=== PATIENT | female | born 1995 | race African-American/Black ===

== ENCOUNTER 2016-11-20 15:03 | Emergency (ER) | payer OTHER ==
[2016-11-20 15:42] VITALS: RESP 18
[2016-11-20] MEDS ORDERED: SODIUM CHLORIDE 0.9% 1,000 ML IV STA ×2 (15:59)
[2016-11-20] MEDS ORDERED: METOCLOPRAMIDE 5 MG/ML 2 ML VIAL IVP STA (15:59)
--- NOTE | 2016-11-20 16:03 | ED ---
General Adult HPI - General Chief complaint: Abdominal Pain Stated complaint: Abd Pain Time Seen by Provider: 11/20/16 15:24 Source: patient, family, RN notes reviewed Mode of arrival: ambulatory Limitations: no limitations - History of Present Illness Initial comments: Chief complaint history of present illness is a 21-year-old female who does not know she is or not. Reports she's had nausea for 3 weeks vomiting for 2 weeks. She's had on-again off-again vaginal bleeding for 2 weeks. Her menstrual cycle is late but she's not sure of how late it might be. - Related Data Home Medications Medication Instructions Recorded Confirmed No Known Home Medications [No 11/20/16 11/20/16 Known Home Medications] Allergies Allergy/AdvReac Type Severity Reaction Status Date / Time No Known Allergies Allergy Verified 11/20/16 15:46 Review of Systems ROS Statement: Those systems with pertinent positive or pertinent negative responses have been documented in the HPI. Review of systems no visual acuity changes no headache no stiff neck no chest pain or shortness of breath. The patient's nausea and vomiting. No abdominal pain. She's had vaginal bleeding 2 occasions over the past 2 weeks. No lower abdominal pain or cramping. Patient does not know if she is or not but she could be potentially. Menstrual cycle has been late but she is not sure how long. No neuro deficits or complaints. All systems otherwise reviewed. Past medical problems no medical problems. Surgeries none. Family history patient denies any family history of medical problems. Patient has seasonal ALLERGIES. She does smoke marijuana. And denies alcohol use. Patient denies working in an environment that's awful to her health. No caustic materials. ROS Other: All systems not noted in ROS Statement are negative. Past Medical History Past Medical History: No Reported History History of Any Multi-Drug Resistant Organisms: None Reported Past Surgical History: No Surgical Hx Reported Past Psychological History: No Psychological Hx Reported Smoking Status: Current every day smoker Past Alcohol Use History: Occasional Past Drug Use History: None Reported General Exam - General Exam Comments Initial Comments: General: The patient is awake and alert, planes of nausea vomiting for the past week and nausea for 2 weeks prior to that. Some vaginal bleeding. No abdominal pain. Vital signs shows temperature 98.0 pulse 74 respiratory rate 20 pulse ox 99% room air blood pressure 105/68. Eye: Pupils are equal, round and reactive to light, extra-ocular movements are intact ; there is normal conjunctiva bilaterally. No signs of icterus. Healed scar left forehead. Ears, nose, mouth and throat: There are moist mucous membranes and no oral lesions. Neck: The neck is supple, there is no tenderness or JVD. Cardiovascular: There is a regular rate and rhythm. No murmur, rub or gallop is appreciated. Respiratory: Lungs are clear to auscultation, respirations are non-labored, breath sounds are equal. No wheezes, stridor, rales, or rhonchi. Gastrointestinal: Soft, non-distended, non-tender abdomen without masses or organomegaly noted. There is no rebound or guarding present. No CVA tenderness. Bowel sounds are unremarkable. Back: There is no tenderness to palpation in the midline. There is no obvious deformity. No rashes noted. Musculoskeletal: Normal ROM, no tenderness, There is no pedal edema. There is no calf tenderness or swelling. Sensation intact. Pulses equal bilaterally 2+. Neurological: No complaint of any neuro deficits. None noted on exam. Skin is warm and dry and no rashes or lesions are noted. Limitations: no limitations Course Vital Signs 11/20/16 11/20/16 11/20/16 15:10 15:40 18:17 Temperature 98.0 F 98.5 F 98.7 F Pulse Rate 74 66 65 Respiratory 20 18 18 Rate Blood Pressure 105/68 102/86 101/58 O2 Sat by Pulse 99 100 100 Oximetry 11/20/16 19:24 Temperature 98.0 F Pulse Rate 70 Respiratory 18 Rate Blood Pressure 102/56 O2 Sat by Pulse 96 Oximetry Medical Decision Making - Medical Decision Making Medical decision making; the patient's beta is positive at 56,377. The patient' s white count is 4.2 hemoglobin 12 medical 38. Amylase lipase normal limits. Potassium 3.6. BUN 11 creatinine 0.75 and GFR greater than 60. Glucose 91. ABO Rh lab reports ; A positive Ultrasound was done after was found the patient is . Radiologist's final impression is; single live intrauterine gestation is confirmed. Mean crown rump length is 0.5 cm corresponding a 6 week 2 day old fetus. As read by Dr. morrow Vaginal examination was done with the help of nurse Maylin. No evidence of any bleeding. Cervix was closed. No discharge. No complaint of pain with examination. Dr. Mahajan Case discussed with on-call CHEMICAL PROCESSOR Dr. Lerma. At this juncture the patient stable she will call the office tomorrow for follow-up appointment. Advised no sex for one week. We did discuss threatened miscarriage. Patient's to call for appointment. - Lab Data Result diagrams: 11/20/16 15:30 11/20/16 15:30 Lab Results 11/20/16 11/20/16 11/20/16 Range/Units 15:30 15:30 15:30 WBC 4.2 (3.8-10.6) k/uL RBC 5.01 (3.80-5.40) m/uL Hgb 12.0 (11.4-16.0) gm/dL Hct 38.2 (34.0-46.0) % MCV 76.2 L (80.0-100.0) fL MCH 24.0 L (25.0-35.0) pg MCHC 31.5 (31.0-37.0) g/dL RDW 14.4 (11.5-15.5) % Plt Count 186 (150-450) k/uL Neutrophils % 51 % Lymphocytes % 34 % Monocytes % 6 % Eosinophils % 4 % Basophils % 1 % Neutrophils # 2.1 (1.3-7.7) k/uL Lymphocytes # 1.4 (1.0-4.8) k/uL Monocytes # 0.2 (0-1.0) k/uL Eosinophils # 0.2 (0-0.7) k/uL Basophils # 0.0 (0-0.2) k/uL Hypochromasia Slight Sodium 138 (137-145) mmol/L Potassium 3.6 (3.5-5.1) mmol/L Chloride 101 (98-107) mmol/L Carbon Dioxide 24 (22-30) mmol/L Anion Gap 13 mmol/L BUN 11 (7-17) mg/dL Creatinine 0.75 (0.52-1.04) mg/dL Est GFR (MDRD) Af Amer >60 (>60 ml/min/1.73 sqM) Est GFR (MDRD) Non-Af >60 (>60 ml/min/1.73 sqM) Glucose 91 (74-99) mg/dL Calcium 9.8 (8.4-10.2) mg/dL Total Bilirubin 0.7 (0.2-1.3) mg/dL AST 20 (14-36) U/L ALT 20 (9-52) U/L Alkaline Phosphatase 40 (38-126) U/L Total Protein 7.9 (6.3-8.2) g/dL Albumin 4.6 (3.5-5.0) g/dL Amylase 87 (30-110) U/L Lipase 60 (23-300) U/L HCG, Quant 01069.1 mIU/mL Urine Color Dark Brown Urine Appearance Cloudy H (Clear) Urine pH 6.0 (5.0-8.0) Ur Specific [place] 1.050 H (1.001-1.035) Urine Protein 2+ H (Negative) Urine Glucose (UA) Trace H (Negative) Urine Ketones Trace H (Negative) Urine Blood Negative (Negative) Urine Nitrite Negative (Negative) Urine Bilirubin 1+ H (Negative) Urine Urobilinogen 12.0 (<2.0) mg/dL Ur Leukocyte Esterase Negative (Negative) Urine RBC 2 (0-5) /hpf Urine WBC 8 H (0-5) /hpf Urine WBC Clumps Few H (None) /hpf Ur Squamous Epith Cells 28 H (0-4) /hpf Amorphous Sediment Rare H (None) /hpf Urine Mucus Many H (None) /hpf Blood Type Blood Type Recheck 11/20/16 Range/Units 15:30 WBC (3.8-10.6) k/uL RBC (3.80-5.40) m/uL Hgb (11.4-16.0) gm/dL Hct (34.0-46.0) % MCV (80.0-100.0) fL MCH (25.0-35.0) pg MCHC (31.0-37.0) g/dL RDW (11.5-15.5) % Plt Count (150-450) k/uL Neutrophils % % Lymphocytes % % Monocytes % % Eosinophils % % Basophils % % Neutrophils # (1.3-7.7) k/uL Lymphocytes # (1.0-4.8) k/uL Monocytes # (0-1.0) k/uL Eosinophils # (0-0.7) k/uL Basophils # (0-0.2) k/uL Hypochromasia Sodium (137-145) mmol/L Potassium (3.5-5.1) mmol/L Chloride (98-107) mmol/L Carbon Dioxide (22-30) mmol/L Anion Gap mmol/L BUN (7-17) mg/dL Creatinine (0.52-1.04) mg/dL Est GFR (MDRD) Af Amer (>60 ml/min/1.73 sqM) Est GFR (MDRD) Non-Af (>60 ml/min/1.73 sqM) Glucose (74-99) mg/dL Calcium (8.4-10.2) mg/dL Total Bilirubin (0.2-1.3) mg/dL AST (14-36) U/L ALT (9-52) U/L Alkaline Phosphatase (38-126) U/L Total Protein (6.3-8.2) g/dL Albumin (3.5-5.0) g/dL Amylase (30-110) U/L Lipase (23-300) U/L HCG, Quant mIU/mL Urine Color Urine Appearance (Clear) Urine pH (5.0-8.0) Ur Specific [place] (1.001-1.035) Urine Protein (Negative) Urine Glucose (UA) (Negative) Urine Ketones (Negative) Urine Blood (Negative) Urine Nitrite (Negative) Urine Bilirubin (Negative) Urine Urobilinogen (<2.0) mg/dL Ur Leukocyte Esterase (Negative) Urine RBC (0-5) /hpf Urine WBC (0-5) /hpf Urine WBC Clumps (None) /hpf Ur Squamous Epith Cells (0-4) /hpf Amorphous Sediment (None) /hpf Urine Mucus (None) /hpf Blood Type A Positive Blood Type Recheck No Disposition Clinical Impression: Threatened Disposition: HOME SELF-CARE Condition: Fair Instructions: Threatened Miscarriage (ED) Additional Instructions: Call follow-up with CHEMICAL PROCESSOR as directed. No heavy lifting. No sex for one week until cleared by CHEMICAL PROCESSOR. Referrals: None,Stated [Primary Care Provider] - 1-2 days Lore Lerma MD [STAFF PHYSICIAN] - 1-2 days Time of Disposition: 19:38
[2016-11-20 16:18] LABS: Basophils % (A) 1 %; CH 23.9; CHCM 31.5; Eosinophils # (A) 0.2 k/uL (0-0.7); Eosinophils % (A) 4 %; HCT 38.2 % (34.0-46.0); HDW 2.63; Hypochromasia Slight; Luc # (Auto) 0.15; Luc % (Auto) 4; Lymphocytes # (A) 1.4 k/uL (1.0-4.8); Lymphocytes % (A) 34 %; MCHC 31.5 g/dL (31.0-37.0); MCV 76.2 fL (80.0-100.0); Mean Platelet Volume 6.6; Monocytes # (A) 0.2 k/uL (0-1.0); Monocytes % (A) 6 %; Neutrophils # (A) 2.1 k/uL (1.3-7.7); Neutrophils % (A) 51 %; RBC 5.01 m/uL (3.80-5.40); RDW 14.4 % (11.5-15.5); WBC 4.2 k/uL (3.8-10.6); WBC (Perox) 4.18
[2016-11-20 16:28] LABS: ALT 20 U/L (9-52); AST 20 U/L (14-36); Alkaline Phosphatase 40 U/L (38-126); Amylase 87 U/L (30-110); Anion Gap 13 mmol/L; Blood Urea Nitrogen 11 mg/dL (7-17); Calcium 9.8 mg/dL (8.4-10.2); Carbon Dioxide 24 mmol/L (22-30); Chloride 101 mmol/L (98-107); Glucose 91 mg/dL (74-99); Non-African American GFR(MDRD) >60 (>60 ml/min/1.73 sqM); Potassium 3.6 mmol/L (3.5-5.1); Sodium 138 mmol/L (137-145); Total Bilirubin 0.7 mg/dL (0.2-1.3); Total Protein 7.9 g/dL (6.3-8.2)
[2016-11-20 16:33] LABS: Amorphous Sediment,Urine Rare /hpf; Appearance,Urine Cloudy (Clear); Bilirubin,Urine 1+ (Negative); Glucose,Urine (UA) Trace (Negative); Ketones,Urine Trace (Negative); Leukocyte Esterase,Urine Negative (Negative); Mucus,Urine Many /hpf; Nitrite,Urine Negative (Negative); Particle Count 37489; Protein,Urine 2+ (Negative); RBC,Urine 2 /hpf (0-5); Squamous Epithelial Cell,Urine 28 /hpf (0-4); UA Billing (MACRO vs. MICRO) MICRO; WBC,Urine 8 /hpf (0-5)
[2016-11-20 17:16] LABS: HCG,Quantitative Serum 56377.1 mIU/mL
--- NOTE | 2016-11-20 18:08 | US ---
EXAMINATION TYPE: US OB <=14 wks transvag DATE OF EXAM: 11/20/2016 5:19 PM COMPARISON: NONE CLINICAL HISTORY: Bleeding, . Positive beta-hCG test EXAM PERFORMED: Transvaginal (TV) and Transabdominal (TA) pelvic ultrasound. EXAM MEASUREMENTS: GESTATIONAL AGE / DATING Physician Established: Not established Dates by LMP: (6 weeks/1 days) EDC: 07/15/2017 Dates by First Scan: No previous Dates by Current Scan for: (6 weeks/2 days) EDC: 07/14/2017 MATERNAL ANATOMY Uterus: 7.2 x 4.7 x 7.0 cm Right Ovary: 3.4 x 2.3 x 2.9 cm Left Ovary: 2.6 x 1.1 x 2.0 cm Post CDS / Adnexa: Small amount of free fluid visualized in the cul de sac Presence of free fluid: Yes Presence of corpus luteal cyst: Yes, right ovary measuring 2.1 x 2.0 x 1.9 cm Presence of subchorionic bleed: No GESTATION / SURVEY CRL: 0.51 cm (6 weeks/2 days) Yolk Sac (normal less than 6mm): 3 mm Heart Rate: 127 bpm Rhythm: Normal IUP: Viable IUP Date of LMP: 10/08/2016 Beta HcG (if available): 56,377 Viable IUP, measurements congruent with dates. Single live intrauterine gestation is seen as gestational sac, yolk sac, and pole are identifie d. Small amount of free fluid is seen in pelvic cul-de-sac on last images saved. Both ovaries are identified. Within right ovary there is peripheral hypervascular 2.1 cm solid and cy stic lesion felt to reflect corpus luteal cyst. IMPRESSION: Single live intrauterine gestation is confirmed. Mean crown-rump length is 0.5 cm corresponding to 6 week 2 day old fetus.
[2016-11-20 19:25] VITALS: BP 102/56; PULSE 70; TEMP 98
== END 2016-11-20 19:45 | disposition home or self-care (01) ==
LOC: EC 15:03
DX: O20.0 Threatened abortion (principal); O99.331 Smoking (tobacco) complicating pregnancy, first trimester; Z3A.01 Less than 8 weeks gestation of pregnancy; F17.200 Nicotine dependence, unspecified, uncomplicated; F12.90 Cannabis use, unspecified, uncomplicated
CPT/HCPCS: 99284; 96374; 96361 ×3; 36415; 86900; 86901; 80053; 82150; 83690; 85025; 81001; 84702; 76801; 76817; J2765

== ENCOUNTER 2017-04-02 18:21 | Outpatient (CLI) | payer OTHER ==
[2017-04-02 18:59] VITALS: BP 97/54; PULSE 71; RESP 16; TEMP 98.4
--- NOTE | 2017-04-21 12:25 | P.MSEPDOC ---
Presenting Problems - Arrival Data Date of Arrival on Unit: 04/02/17 Time of Arrival on Unit: 18:30 Mode of Transport: Ambulatory - Complaint OB-Reason for Admission/Chief Complaint: Other Comment: EXPOSED TO STD ONE WEEK AGO Medical History - Information : 1 Para: 0 Term: 0 : 0 Abortions: Spontaneous or Elective: 0 Number of Living Children: 0 - Gestational Age Expected Date of Delivery: 07/13/17 Gestational Age by LIUDMILA (wks/days): 28 Weeks and 1 Days - History Comment: STD UNKNOWN RECENT EXPOSURE Review of Systems - Review of Systems Constitutional: No problems Breast: No problems ENT: No problems Cardiovascular: No problems Respiratory: No problems Gastrointestinal: No problems Genitourinary: No problems Musculoskeletal: No problems Neurological: No problems Skin: No problems Vital Signs - Temperature Temperature: 98.4 F Temperature Source: Oral - Pulse Supine Pulse Rate: 71 Pulse Assessment Method: Automatic Cuff - Respirations Respiratory Rate: 16 Oxygen Delivery Method: Room Air - Blood Pressure Sitting Blood Pressure: 97/54 Blood Pressure Mean: 68 Blood Pressure Source: Automatic Cuff Medical Screen Scoring (Pre) - Cervical Exam Dilation: Exam Deferred Effacement: Exam Deferred - Uterine Contractions Frequency: N/A Duration: N/A Intensity: N/A - Maternal Vital Signs Maternal Temperature: N/A Signs of Preeclampsia: N/A Maternal Respirations: N/A - Maternal Trauma Maternal Trauma: N/A - Assessment Heart Rate - NICHD Category: Category I (Normal) = 0 Position: N/A - Total Score Total Score (Pre): 0 Physician Notification (Pre) - Physician Notified Physician Notified Date: 04/02/17 Physician Notified Time: 18:58 Physician/Practitioner Notifed:: DR GRAVES New Order Received: Yes - Notification Comment Comment: DISCHARGE HOME Disposition - Disposition OB Disposition: Discharge to home Discharge Date: 04/02/17 Discharge Time: 18:59 I agree with the RN Medical Screening Exam: No Physician's MSE Comment: incomplete documentation Risk & Benefit of care provided described in d/c instruction: No Diagnosis: 28 WEEKS GESTATION OF
== END 2017-04-02 19:03 | disposition home or self-care (01) ==
LOC: FBPOP 18:21
PROVIDERS: ATTEND Obstetrics & Gynecology
DX: O99.89 Other specified diseases and conditions complicating pregnancy, childbirth and the puerperium (principal); Z3A.28 28 weeks gestation of pregnancy
CPT/HCPCS: 99213

== ENCOUNTER 2017-05-14 21:20 | Outpatient (CLI) | payer OTHER ==
--- NOTE | 2017-06-02 08:55 | P.MSEPDOC ---
Presenting Problems - Arrival Data Date of Arrival on Unit: 05/14/17 Time of Arrival on Unit: 21:20 Mode of Transport: Wheelchair - Complaint OB-Reason for Admission/Chief Complaint: Possible Onset of Labor Medical History - Information : 1 Para: 0 Term: 0 : 0 Abortions: Spontaneous or Elective: 0 Number of Living Children: 0 - Gestational Age Gestational Age by LIUDMILA (wks/days): 31 Weeks and 3 Days Medical Screen Scoring (Pre) - Cervical Exam Dilation: 0 cm = 0 Membranes: Intact - Uterine Contractions Frequency: N/A - Maternal Vital Signs Signs of Preeclampsia: N/A - Total Score Total Score (Pre): 0 Physician Notification (Pre) - Physician Notified Physician Notified Date: 05/14/17 Physician Notified Time: 22:10 Physician/Practitioner Notifed:: stephanie Spoke With: stephanie New Order Received: Yes - Notification Comment Comment: discharge home. Medical Screen Scoring (Post) - Cervical Exam Dilation: 0 cm = 0 - Assessment NST: Reactive - Total Score Total Score (Post): 0 Disposition - Disposition OB Disposition: Discharge to home Discharge Date: 05/14/17 Discharge Time: 22:15 I agree with the RN Medical Screening Exam: Yes Risk & Benefit of care provided described in d/c instruction: Yes Diagnosis: FALSE LABOR BEFORE 37 COMPLETED WEEKS OF GEST, SECOND TRI
== END 2017-05-14 22:15 | disposition home or self-care (01) ==
LOC: FBPOP 21:20
PROVIDERS: ATTEND Obstetrics & Gynecology
DX: O47.02 False labor before 37 completed weeks of gestation, second trimester (principal); Z3A.31 31 weeks gestation of pregnancy
CPT/HCPCS: 59025; G0463; 99213

== ENCOUNTER 2017-07-10 06:15 | Inpatient (IN) | payer OTHER ==
[2017-07-10 06:39] VITALS: BMI 24.0
[2017-07-10] MEDS ORDERED: METHYLERGONOVINE 0.2 MG/ML 1 ML AMP IM PRN (06:47)
[2017-07-10] MEDS ORDERED: OXYTOCIN 10 UNIT/ML 1 ML VIAL IM PRN (06:47)
[2017-07-10] MEDS ORDERED: CARBOPROST TROMETHAMINE 250 MCG/ML 1 ML AMP IM PRN (06:47)
[2017-07-10] MEDS ORDERED: TERBUTALINE 1 MG/ML VIAL SQ PRN (06:47)
[2017-07-10] MEDS ORDERED: LIDOCAINE 1% (PF) 10 MG/ML (30 ML SDV) SQ PRN (06:47)
[2017-07-10] MEDS ORDERED: OXYTOCIN 20 UNITS/1000 ML NS 1,000 ML IV SCH ×2 (07:00→19:00)
[2017-07-10] MEDS ORDERED: BUTORPHANOL 1 MG/ML 1 ML VIAL IV PRN (08:29)
[2017-07-10 08:39] LABS: Basophils % (A) 0 %; CH 24.6; CHCM 30.7; Eosinophils # (A) 0.1 k/uL (0-0.7); Eosinophils % (A) 2 %; HCT 31.6 % (34.0-46.0); HDW 3.09; HGB 9.4 gm/dL (11.4-16.0); Hypochromasia Moderate; Luc # (Auto) 0.15; Luc % (Auto) 2; Lymphocytes # (A) 1.4 k/uL (1.0-4.8); Lymphocytes % (A) 21 %; MCHC 29.8 g/dL (31.0-37.0); MCV 80.7 fL (80.0-100.0); Mean Platelet Volume 8.4; Monocytes # (A) 0.4 k/uL (0-1.0); Monocytes % (A) 6 %; Neutrophils # (A) 4.7 k/uL (1.3-7.7); Neutrophils % (A) 69 %; RBC 3.92 m/uL (3.80-5.40); RDW 15.6 % (11.5-15.5); WBC 6.8 k/uL (3.8-10.6); WBC (Perox) 6.66
[2017-07-10] MEDS: LACTATED RINGERS 1,000 ML IV SCH ×2 (08:40→14:23)
--- NOTE | 2017-07-10 08:41 | P.HPOB ---
History of Present Illness H&P Date: 07/10/17 Chief Complaint: IUP at 40-2/7 weeks, EDC of 07/08. This is a very pleasant 22-year-old 1 para 0 at 40-2/7 weeks. She is here for elective induction of labor. She notes good movement, occasional contractions and is feeling a significant amount of pressure. She denies any loss of fluid or vaginal bleeding. Next On blood work a blood type of A+ was noted, rubella immune, RPR nonreactive, hepatitis B surface antigen negative, HIV negative, group beta strep negative in addition STD testing was negative in March. Review of Systems Constitutional: Denies fatigue, Denies fever Respiratory: Denies cough, Denies dyspnea Gastrointestinal: Denies constipation, Denies diarrhea Genitourinary: Reports Past Medical History Past Medical History: No Reported History History of Any Multi-Drug Resistant Organisms: None Reported Past Surgical History: No Surgical Hx Reported Past Anesthesia/Blood Transfusion Reactions: No Reported Reaction Past Psychological History: No Psychological Hx Reported Smoking Status: Former smoker Past Alcohol Use History: Occasional Past Drug Use History: None Reported - Past Family History Mother Family Medical History: No Reported History Medications and Allergies Home Medications Medication Instructions Recorded Confirmed Type No Known Home Medications [No 11/20/16 07/10/17 History Known Home Medications] Allergies Allergy/AdvReac Type Severity Reaction Status Date / Time No Known Allergies Allergy Verified 07/10/17 06:29 Exam Osteopathic Statement: *. No significant issues noted on an osteopathic structural exam other than those noted in the History and Physical/Consult. - Vital Signs Vital signs: Vital Signs Temp Pulse Resp BP Pulse Ox 07/10/17 06:28 97.0 F L 88 16 113/73 98 Intake and Output 07/09/17 07/10/17 07/10/17 22:59 06:59 14:59 Other: Weight 73.936 kg Assessment and Plan (1) Term Narrative/Plan: Plan to admit to labor and delivery with Pitocin augmentation of labor. Pitocin protocol will be followed. Amniotomy when appropriate. She does request Stadol for pain management. In addition epidural is discussed. Current Visit: Yes Status: Acute Code(s): Z34.80 - ENCOUNTER FOR SUPRVSN OF NORMAL , UNSP TRIMESTER SNOMED Code(s): 64619927 Time with Patient: Less than 30
[2017-07-10] MEDS ORDERED: fentaNYL (PF) 50 MCG/ML 5 ML AMP ONE (14:54)
[2017-07-10] MEDS ORDERED: BUPIVACAINE (PF) 0.25% 30 ML VIAL ONE (14:54)
[2017-07-10] MEDS ORDERED: SODIUM CHLORIDE 0.9% 100 ML BAG ONE (14:54)
[2017-07-10] MEDS ORDERED: diphenhydrAMINE 50 MG/ML 1 ML VIAL IVP PRN ×2 (18:57)
[2017-07-10] MEDS ORDERED: HYDROCORTISONE 2.5% RECTAL CREAM 30 GM TUBE RECTAL PRN (18:57)
[2017-07-10] MEDS ORDERED: LANOLIN CREAM 5 GM TUBE TOPICAL PRN (18:57)
[2017-07-10] MEDS ORDERED: ACETAMINOPHEN TAB 325 MG TAB PO PRN (18:57)
[2017-07-10] MEDS ORDERED: diphenhydrAMINE 25 MG CAP PO PRN (18:57)
[2017-07-10] MEDS ORDERED: BENZOCAINE/MENTHOL SPRAY 1 GM/SPRAY AEROSOL TOPICAL PRN (18:57)
[2017-07-10] MEDS ORDERED: Acetaminophen-Codeine 300-30mg TAB PO PRN ×2 (18:57)
[2017-07-10] MEDS ORDERED: SIMETHICONE 80 MG CHEWABLE PO PRN (18:57)
[2017-07-10] MEDS ORDERED: WITCH HAZEL 1 EACH MED..PAD TOPICAL PRN (18:57)
[2017-07-10] MEDS ORDERED: ZOLPIDEM 5 MG TAB PO PRN (18:57)
[2017-07-10] MEDS ORDERED: diphenhydrAMINE 50 MG CAP PO PRN (18:57)
--- NOTE | 2017-07-10 18:57 | P.PROBDLV ---
Vaginal Delivery Note - . Vaginal Delivery Note: pt progressed to complete and began pushing over an intact perineum Preoperative diagnosis intrauterine at 40-2/7 weeks, IUGR Postoperative diagnosis same Procedure normal spontaneous vaginal delivery, Pitocin induction of labor, amniotomy, repair of right labial laceration in the usual fashion Surgeon S Tremp DO Anesthesia epidural, local with repair Estimated blood loss 200 mL Findings male in occiput anterior presentation, nuchal cord 1 delivered through. Weight of 6 lbs. 5 oz. at 1838, Apgars of 9 and 9 at one and 5 minutes respectively. Placenta delivered spontaneously without difficulty, three-vessel cord is noted. Specimen placenta Complications none
[2017-07-10] MEDS: IBUPROFEN 600 MG TAB PO PRN (19:21)
[2017-07-10] MEDS: SENNOSIDES-DOCUSATE SODIUM 1 EACH TAB PO SCH (21:06)
[2017-07-11] MEDS: IBUPROFEN 600 MG TAB PO PRN ×2 (05:02→11:33)
[2017-07-11 05:44] LABS: Anisocytosis Slight; Basophils % (A) 0 %; CH 24.3; CHCM 31.1; Eosinophils # (A) 0.1 k/uL (0-0.7); Eosinophils % (A) 2 %; HCT 26.7 % (34.0-46.0); HDW 3.02; HGB 8.3 gm/dL (11.4-16.0); Hypochromasia Moderate; Luc # (Auto) 0.08; Luc % (Auto) 1; Lymphocytes # (A) 0.8 k/uL (1.0-4.8); Lymphocytes % (A) 9 %; MCH 24.5 pg (25.0-35.0); MCHC 31.1 g/dL (31.0-37.0); MCV 78.6 fL (80.0-100.0); Mean Platelet Volume 8.1; Monocytes # (A) 0.4 k/uL (0-1.0); Monocytes % (A) 5 %; Neutrophils # (A) 7.8 k/uL (1.3-7.7); Neutrophils % (A) 84 %; RDW 16.2 % (11.5-15.5); WBC 9.3 k/uL (3.8-10.6)
[2017-07-11] MEDS ORDERED: IRON AG/C/B12/CA/SUC.ACID/STOM 1 EACH TAB PO SCH (09:00)
[2017-07-11] MEDS ORDERED: INFLUENZA VACCINE (6 MOS+) 60 MCG/0.5 ML SYRINGE IM ONE (09:28)
--- NOTE | 2017-07-11 10:20 | P.PNOBGVD ---
Subjective - Subjective Principal diagnosis: PPD #1 Interval history: she is doing well, no concerns this am. she is ambulating and voiding without difficulty. no n/v and is tolerating a regular diet. lochia is minimal. she does desire d/c at 24 hours. Patient reports: Reports appetite normal, Reports voiding normally, Reports pain well controlled, Reports ambulating normally [place]: doing well Objective - Latest Vital Signs Latest vital signs: Vital Signs Temp Pulse Resp BP Pulse Ox 07/11/17 07:45 98 F 76 18 109/69 99 07/11/17 04:00 99 F 89 14 111/64 07/11/17 00:00 98.9 F 86 14 101/73 07/10/17 20:51 77 16 125/78 07/10/17 20:21 71 16 110/63 07/10/17 19:51 73 16 109/71 07/10/17 19:36 70 16 120/75 07/10/17 19:21 74 16 108/72 07/10/17 19:06 88 19 113/71 07/10/17 18:51 96.8 F L 89 18 118/62 100 Intake and Output 07/10/17 07/11/17 07/11/17 22:59 06:59 14:59 Other: # Voids 1 1 - Exam Lungs: bilateral: normal Extremities: Present: normal Abdomen: Present: normal appearance Uterus: Present: firm - Labs Labs: Abnormal Lab Results - Last 24 Hours (Table) 07/11/17 Range/Units 05:29 RBC 3.40 L (3.80-5.40) m/uL Hgb 8.3 L (11.4-16.0) gm/dL Hct 26.7 L (34.0-46.0) % MCV 78.6 L (80.0-100.0) fL MCH 24.5 L (25.0-35.0) pg RDW 16.2 H (11.5-15.5) % Plt Count 110 L (150-450) k/uL Neutrophils # 7.8 H (1.3-7.7) k/uL Lymphocytes # 0.8 L (1.0-4.8) k/uL Assessment and Plan (1) Term Narrative/Plan: will plan d/c later tonight. discharge instructions reviewed with pt, motrin for pain if needed on d/c. Current Visit: Yes Status: Acute Code(s): Z34.80 - ENCOUNTER FOR SUPRVSN OF NORMAL , UNSP TRIMESTER SNOMED Code(s): 16933615
--- NOTE | 2017-07-11 13:28 | P.DS ---
Providers Date of admission: 07/10/17 06:16 Expected date of discharge: 07/11/17 Attending physician: Bronwyn Mckeon Primary care physician: Stated None - Discharge Diagnosis(es) (1) Term This 22-year-old at 40-2/7 weeks was admitted to labor and delivery for elective induction of labor 07/10/2017. She was augmented with Pitocin per protocol and progressed through labor eventually getting an epidural. She began pushing and had spontaneous vaginal delivery of a viable male . Her course has been uneventful and on this day #1 she wishes discharge home. Discharge instructions are discussed with the patient in detail and she will follow-up in the office in 4-6 weeks. Prescription for Motrin for discomfort is given to the patient. She will call the office with any further questions or concerns prior to this appointment Current Visit: Yes Status: Acute Plan - Discharge Summary New Discharge Prescriptions: No Action No Known Home Medications [No Known Home Medications] Discharge Medication List No Known Home Medications [No Known Home Medications] 11/20/16 [History] Follow up Appointment(s)/Referral(s): Bronwyn Mckeon DO [Doctor of Osteopathic Medicine] - 4 Weeks Patient Instructions/Handouts: Vaginal Delivery (DC) Discharge Disposition: HOME SELF-CARE
[2017-07-11] MEDS: SENNOSIDES-DOCUSATE SODIUM 1 EACH TAB PO SCH ×2 (15:31→20:40)
[2017-07-11 16:38] VITALS: BP 117/63; PULSE 82; RESP 17; TEMP 98.1
== END 2017-07-11 21:15 | disposition home or self-care (01) | DRG 560 ==
LOC: 4FBP 06:16
PROVIDERS: ADMIT Obstetrics & Gynecology Obstetrics; ATTEND Obstetrics & Gynecology Obstetrics
PROC: 10E0XZZ Delivery of Products of Conception, External Approach (ICD-10-PCS; principal; 2017-07-10)
PROC: 0HQ9XZZ Repair Perineum Skin, External Approach (ICD-10-PCS; 2017-07-10)
PROC: 00HU33Z Insertion of Infusion Device into Spinal Canal, Percutaneous Approach (ICD-10-PCS; 2017-07-10)
PROC: 3E0R3BZ Introduction of Anesthetic Agent into Spinal Canal, Percutaneous Approach (ICD-10-PCS; 2017-07-10)
PROC: 3E033VJ Introduction of Other Hormone into Peripheral Vein, Percutaneous Approach (ICD-10-PCS; 2017-07-10)
PROC: 10907ZC Drainage of Amniotic Fluid, Therapeutic from Products of Conception, Via Natural or Artificial Opening (ICD-10-PCS; 2017-07-10)
PROC: 3E0234Z Introduction of Serum, Toxoid and Vaccine into Muscle, Percutaneous Approach (ICD-10-PCS; 2017-07-11)
DX: O36.5930 Maternal care for other known or suspected poor fetal growth, third trimester, not applicable or unspecified (principal); O69.81X0 Labor and delivery complicated by cord around neck, without compression, not applicable or unspecified; O70.0 First degree perineal laceration during delivery; Z37.0 Single live birth; Z3A.40 40 weeks gestation of pregnancy; Z87.891 Personal history of nicotine dependence; Z23 Encounter for immunization
CPT/HCPCS: 85025; 88307; 90686

== ENCOUNTER 2019-03-07 00:52 | Emergency (ER) | payer OTHER ==
[2019-03-07 01:10] VITALS: RESP 18; TEMP 97.3
[2019-03-07] MEDS ORDERED: KETOROLAC 60 MG/2 ML VIAL IM STA (01:45)
[2019-03-07] MEDS ORDERED: ORPHENADRINE 30 MG/ML 2 ML VIAL IM STA (01:45)
--- NOTE | 2019-03-07 02:47 | US ---
EXAM: US Duplex Right Lower Extremity Veins CLINICAL HISTORY: ITS.REASON US Reason: Pain TECHNIQUE: Real-time duplex ultrasound scan of the right lower extremity veins integrating B-mode two-dimensional vascular structure, Doppler spectral analysis, color flow Doppler imaging and compression. COMPARISON: No relevant prior studies available. FINDINGS: Deep veins: No DVT in the visualized common femoral, femoral, proximal deep femoral or popliteal veins. The veins demonstrate normal color flow, are normally compressible, with normal phasic flow and/or augmentation response. Superficial veins: No thrombus in the visualized great saphenous vein. Soft tissues: No popliteal cyst. IMPRESSION: No DVT.
--- NOTE | 2019-03-07 02:59 | ED ---
Extremity Problem HPI - General Source: patient, RN notes reviewed, old records reviewed Mode of arrival: ambulatory Limitations: no limitations <Lianne Toure - Last Filed: 03/07/19 03:32> <Carina Pablo - Last Filed: 03/07/19 05:27> - General Chief complaint: Extremity Problem,Nontraumatic Stated complaint: Leg Pain Time Seen by Provider: 03/07/19 01:14 - History of Present Illness Initial comments: Patient is a 23-year-old female presents emergency with right calf pain. Patient reports symptoms started while walking to work. Patient states that she has tingling feeling down her calf and leg. Patient reports no history of blood clots, denies fevers, chills, and other symptoms. (Lianne Toure) - Related Data Home Medications Medication Instructions Recorded Confirmed No Known Home Medications 11/20/16 07/10/17 Allergies Allergy/AdvReac Type Severity Reaction Status Date / Time No Known Allergies Allergy Verified 07/10/17 06:29 Review of Systems ROS Other: All systems not noted in ROS Statement are negative. <Lianne Toure - Last Filed: 03/07/19 03:32> ROS Other: All systems not noted in ROS Statement are negative. <Carina Pablo P - Last Filed: 03/07/19 05:27> ROS Statement: Those systems with pertinent positive or pertinent negative responses have been documented in the HPI. Past Medical History Past Medical History: No Reported History History of Any Multi-Drug Resistant Organisms: None Reported Past Surgical History: No Surgical Hx Reported Past Anesthesia/Blood Transfusion Reactions: No Reported Reaction Past Psychological History: No Psychological Hx Reported Smoking Status: Former smoker Past Alcohol Use History: Occasional Past Drug Use History: None Reported - Past Family History Mother Family Medical History: No Reported History <Lianne Toure - Last Filed: 03/07/19 03:32> General Exam Limitations: no limitations General appearance: alert, in no apparent distress Head exam: Present: atraumatic, normocephalic, normal inspection Eye exam: Present: normal appearance, PERRL, EOMI. Absent: scleral icterus, conjunctival injection, periorbital swelling ENT exam: Present: normal exam, mucous membranes moist Neck exam: Present: normal inspection. Absent: tenderness, meningismus, lymp hadenopathy Respiratory exam: Present: normal lung sounds bilaterally. Absent: respiratory distress, wheezes, rales, rhonchi, stridor Cardiovascular Exam: Present: regular rate, normal rhythm, normal heart sounds. Absent: systolic murmur, diastolic murmur, rubs, gallop, clicks GI/Abdominal exam: Present: soft, normal bowel sounds. Absent: distended, tenderness, guarding, rebound, rigid Extremities exam: Present: normal inspection, full ROM, normal capillary refill. Absent: tenderness, pedal edema, joint swelling, calf tenderness Right Knee exam: Present: normal inspection, full ROM Lower Leg exam: Present: tenderness, swelling. Absent: normal inspection Ankle exam: Present: normal inspection, full ROM Foot/Toe exam: Present: normal inspection Neurovascular tendon exam: Present: no vascular compromise Back exam: Present: normal inspection Neurological exam: Present: alert Psychiatric exam: Present: normal affect, normal mood Skin exam: Present: warm, dry, intact, normal color. Absent: rash <Lianne Toure - Last Filed: 03/07/19 03:32> - General Exam Comments Initial Comments: 23 year old female, no distress. (Lianne Toure) Course Vital Signs 03/07/19 03/07/19 01:05 03:30 Temperature 97.3 F L Pulse Rate 69 62 Respiratory 18 18 Rate Blood Pressure 112/69 107/76 O2 Sat by Pulse 98 100 Oximetry Medical Decision Making - Radiology Data Radiology results: report reviewed <Lianne Toure - Last Filed: 03/07/19 03:32> <Carina Pablo - Last Filed: 03/07/19 05:27> - Medical Decision Making 23-year-old female presents emergency department today for evaluation for right calf pain. She has tenderness over the calf. Muscle cramps. Symptoms started when she was walking. Patient at this time was given Toradol and Norflex. Ultrasound of the Same for any acute process. Slight muscle cramp. Discussed remaining hydrated and close follow-up with PCP. (Lianne Toure) I was available for consultation in the emergency department. The history and physical exam were done by the midlevel provider. I was consulted for this patient's care. I reviewed the case with the midlevel provider and based on their presentation of the patient, I agree with the assessment, medical decision making and plan of care as documented. Chart was dictated using [employer] dictation software. Attempts were made to correct any dictation errors however some typographical errors may persist. (Carina Pablo) - Radiology Data Ultrasound is negative for any acute process. (Lianne Toure) Disposition Is patient prescribed a controlled substance at d/c from ED?: No Time of Disposition: 02:55 <Lianne Toure - Last Filed: 03/07/19 03:32> <Carina Pablo - Last Filed: 03/07/19 05:27> Clinical Impression: Leg cramp Disposition: HOME SELF-CARE Condition: Good Instructions (If sedation given, give patient instructions): Leg Cramps (ED), Muscle Cramp (ED) Additional Instructions: Patient is advised to have close follow-up with primary care physician. Patient should do stretches of the leg muscle. Take Motrin Tylenol for further pain. Return to the emergency department if any alarming signs or symptoms occur. Referrals: None,Stated [Primary Care Provider] - 1-2 days Christen Sue MD [STAFF PHYSICIAN] - 1-2 days
[2019-03-07 03:57] VITALS: BP 107/76; PULSE 62
== END 2019-03-07 03:57 | disposition home or self-care (01) ==
LOC: EC 00:52
DX: R25.2 Cramp and spasm (principal); Z87.891 Personal history of nicotine dependence
CPT/HCPCS: 93971; 99284; 96372 ×2; J2360; J1885

== ENCOUNTER 2019-05-28 11:03 | Emergency (ER) | payer OTHER ==
[2019-05-28 11:24] VITALS: RESP 16
[2019-05-28] MEDS ORDERED: SODIUM CHLORIDE 0.9% 1,000 ML IV ONE (12:04)
[2019-05-28] MEDS ORDERED: ONDANSETRON 4 MG/2 ML VIAL IVP STA (12:04)
[2019-05-28] MEDS ORDERED: MORPHINE SULFATE 4 MG/ML SYRINGE IV STA (12:04)
[2019-05-28 12:31] LABS: Basophils % (A) 1 %; Eosinophils # (A) 0.3 k/uL (0-0.7); Eosinophils % (A) 12 %; HCT 35.9 % (34.0-46.0); HGB 11.2 gm/dL (11.4-16.0); Hypochromasia Slight; Lymphocytes # (A) 0.9 k/uL (1.0-4.8); Lymphocytes % (A) 33 %; MCH 24.2 pg (25.0-35.0); MCHC 31.3 g/dL (31.0-37.0); MCV 77.3 fL (80.0-100.0); Mean Platelet Volume 6.6; Monocytes # (A) 0.1 k/uL (0-1.0); Monocytes % (A) 5 %; Neutrophils # (A) 1.2 k/uL (1.3-7.7); Neutrophils % (A) 47 %; Platelet Count 172 k/uL (150-450); RBC 4.65 m/uL (3.80-5.40); RDW 14.9 % (11.5-15.5); WBC 2.6 k/uL (3.8-10.6)
[2019-05-28 12:45] LABS: ALT 13 U/L (9-52); AST 16 U/L (14-36); African American GFR (CKD) >90 (>60 ml/min/1.73 sqM); Albumin 4.4 g/dL (3.5-5.0); Alkaline Phosphatase 29 U/L (38-126); Anion Gap 7 mmol/L; Blood Urea Nitrogen 13 mg/dL (7-17); Calcium 9.5 mg/dL (8.4-10.2); Carbon Dioxide 27 mmol/L (22-30); Chloride 106 mmol/L (98-107); Glucose 91 mg/dL (74-99); Potassium 4.1 mmol/L (3.5-5.1); Sodium 140 mmol/L (137-145); Total Bilirubin 0.4 mg/dL (0.2-1.3); Total Protein 7.5 g/dL (6.3-8.2)
[2019-05-28 12:48] LABS: Partial Thromboplastin Time 27.6 sec (22.0-30.0); Prothrombin Time 10.3 sec (9.0-12.0)
[2019-05-28] MEDS ORDERED: METOCLOPRAMIDE 5 MG/ML 2 ML VIAL IVP STA (13:33)
[2019-05-28] MEDS ORDERED: diphenhydrAMINE 50 MG/ML 1 ML VIAL IVP STA (13:33)
[2019-05-28 13:37] LABS: Appearance,Urine Cloudy (Clear); Bilirubin,Urine Negative (Negative); Blood,Urine Large (Negative); Color,Urine Red; Glucose,Urine (UA) Negative (Negative); Ketones,Urine Negative (Negative); Leukocyte Esterase,Urine Moderate (Negative); Nitrite,Urine Negative (Negative); Protein,Urine 1+ (Negative); RBC,Urine >182 /hpf (0-5); Specific Gravity,Urine 1.019 (1.001-1.035); Urobilinogen,Urine <2.0 mg/dL (<2.0); WBC,Urine 25 /hpf (0-5)
--- NOTE | 2019-05-28 13:37 | US ---
EXAMINATION TYPE: US transvaginal DATE OF EXAM: 05/28/2019 COMPARISON: NONE CLINICAL HISTORY: pain. Heavy bleeding for 3 days. TECHNIQUE: Transvaginal (TV). Date of LMP: 05/16/2019 EXAM MEASUREMENTS: Uterus: 7.8 x 3.7 x 5.5 cm Endometrial Stripe: 0.5 cm Right Ovary: 2.9 x 2.6 x 2.8 cm Left Ovary: 3.6 x 2.1 x 2.3 cm 1. Uterus: Anteverted wnl 2. Endometrium: wnl 3. Right Ovary: wnl 4. Left Ovary: wnl Spectral, color and waveform doppler imaging shows good arterial and venous flow within the ovaries ; there is no evidence for ovarian torsion. 5. Bilateral Adnexa: free fluid adjacent to left ovary. 6. Posterior cul-de-sac: moderate amount of free fluid that extends to left adnexa. IMPRESSION: Moderate amount of free fluid in the posterior cul-de-sac and left paraovarian region. Th is is likely physiologic in nature related to a recently ruptured cyst. Otherwise pelvic ultrasound i s unremarkable. Ensure negative beta-hCG as moderately fluid could also be seen in ruptured ectopic. No other sonographic findings to suggest ectopic .
--- NOTE | 2019-05-28 14:47 | ED ---
Abdominal Pain HPI - General Chief Complaint: Abdominal Pain Stated Complaint: GI bleed Time Seen by Provider: 05/28/19 11:25 Source: patient Mode of arrival: ambulatory Limitations: no limitations - History of Present Illness Initial Comments: The patient is a 24 year old female who presents to the emergency room with reported vaginal bleeding. She states that she just ended her menstrual cycle on Friday. States that she normally has a regular menstrual cycles, once a month which lasts for 4 days. She then began having vaginal bleeding again today. She has associated suprapubic cramping without radiation. Denies any vaginal discharge. No concern for sexually transmitted infection. Does report that she has had unprotected intercourse however denies possibility of . Denies any hematuria, dysuria or difficulty voiding. Denies any constipation, melanotic stools, hematochezia or diarrhea. Denies any back or flank pain. No fevers or chills. Denies any chest pain, nausea, vomiting. No abdominal trauma. No hormone use. Denies any vaginal trauma. There are no other alleviating, precipitating or modifying factors - Related Data Previous Rx's Medication Instructions Recorded Naproxen [Naprosyn] 500 mg PO BID PRN #20 tablet 05/28/19 Allergies Allergy/AdvReac Type Severity Reaction Status Date / Time No Known Allergies Allergy Verified 05/28/19 14:23 Review of Systems ROS Statement: Those systems with pertinent positive or pertinent negative responses have been documented in the HPI. ROS Other: All systems not noted in ROS Statement are negative. Past Medical History Past Medical History: No Reported History History of Any Multi-Drug Resistant Organisms: None Reported Past Surgical History: No Surgical Hx Reported Past Anesthesia/Blood Transfusion Reactions: No Reported Reaction Past Psychological History: No Psychological Hx Reported Smoking Status: Former smoker Past Alcohol Use History: Occasional Past Drug Use History: None Reported - Past Family History Mother Family Medical History: No Reported History General Exam Limitations: no limitations General appearance: alert, in no apparent distress Head exam: Present: atraumatic, normocephalic, normal inspection Eye exam: Present: normal appearance, PERRL, EOMI. Absent: scleral icterus, conjunctival injection, periorbital swelling ENT exam: Present: normal exam, mucous membranes moist Neck exam: Present: normal inspection. Absent: tenderness, meningismus, lymphadenopathy Respiratory exam: Present: normal lung sounds bilaterally. Absent: respiratory distress, wheezes, rales, rhonchi, stridor Cardiovascular Exam: Present: regular rate, normal rhythm, normal heart sounds. Absent: systolic murmur, diastolic murmur, rubs, gallop, clicks GI/Abdominal exam: Present: soft, normal bowel sounds. Absent: distended, tenderness, guarding, rebound, rigid External exam: Present: normal external exam. Absent: erythema, swelling, lesions, lacerations Speculum exam: Present: normal speculum exam, vaginal bleeding. Absent: vaginal discharge, cervical discharge, laceration Extremities exam: Present: normal inspection, full ROM, normal capillary refill. Absent: tenderness, pedal edema, joint swelling, calf tenderness Back exam: Present: normal inspection Neurological exam: Present: alert, oriented X3, CN II-XII intact Psychiatric exam: Present: normal affect, normal mood Skin exam: Present: warm, dry, intact, normal color. Absent: rash Course Vital Signs 05/28/19 05/28/19 11:23 14:51 Temperature 98.2 F 97.8 F Pulse Rate 72 69 Respiratory 16 16 Rate Blood Pressure 99/69 122/81 O2 Sat by Pulse 99 99 Oximetry Medical Decision Making - Medical Decision Making Upon arrival the patient is placed in room 26. A thorough history of physical exam is performed. Peripheral IV was established. The patient was given a liter bolus of normal saline. The patient is requesting "the strongest pain medication possible" I did provide the patient with 4 mg of morphine and 4 mg of Zofran. Lab studies were conducted. I did recommend a pelvic ultrasound. Laboratory studies demonstrate a white blood cell count of 2.6, hemoglobin 11.2. Urinalysis demonstrates 1+ protein, large blood, moderate leukocyte esterase, greater than 182 red blood cells and 25 white blood cells. Urine hCG is negative. Pelvic ultrasound demonstrates moderate amount of free fluid posterior cul-de-sac and left periovarian region. Likely physiologic in nature related to recent ruptured cyst. I did reevaluate the patient. She is requesting additional nausea medication. She is given 10 mg of Reglan and 25 mg of Benadryl. I did reevaluate the patient she states that her pain is greatly improved. Discuss results with the patient. Serial abdominal exams were performed and demonstrated no peritoneal signs. The patient will be given a prescription for Naprosyn. She needs to follow-up with an CONSTRUCTION PROJECT ASSISTANT for further evaluation. I did provide her with Dr. Lozoya information. If she has any new or worsening symptoms she should return to the room. The patient was discharged home in stable condition - Lab Data Result diagrams: 05/28/19 12:21 05/28/19 12:21 Lab Results 05/28/19 05/28/19 05/28/19 Range/Units 12:21 12:21 12:21 WBC 2.6 L (3.8-10.6) k/uL RBC 4.65 (3.80-5.40) m/uL Hgb 11.2 L (11.4-16.0) gm/dL Hct 35.9 (34.0-46.0) % MCV 77.3 L (80.0-100.0) fL MCH 24.2 L (25.0-35.0) pg MCHC 31.3 (31.0-37.0) g/dL RDW 14.9 (11.5-15.5) % Plt Count 172 (150-450) k/uL Neutrophils % 47 % Lymphocytes % 33 % Monocytes % 5 % Eosinophils % 12 % Basophils % 1 % Neutrophils # 1.2 L (1.3-7.7) k/uL Lymphocytes # 0.9 L (1.0-4.8) k/uL Monocytes # 0.1 (0-1.0) k/uL Eosinophils # 0.3 (0-0.7) k/uL Basophils # 0.0 (0-0.2) k/uL Hypochromasia Slight PT 10.3 (9.0-12.0) sec INR 1.0 (<1.2) APTT 27.6 (22.0-30.0) sec Sodium 140 (137-145) mmol/L Potassium 4.1 (3.5-5.1) mmol/L Chloride 106 (98-107) mmol/L Carbon Dioxide 27 (22-30) mmol/L Anion Gap 7 mmol/L BUN 13 (7-17) mg/dL Creatinine 0.84 (0.52-1.04) mg/dL Est GFR (CKD-EPI)AfAm >90 (>60 ml/min/1.73 sqM) Est GFR (CKD-EPI)NonAf >90 (>60 ml/min/1.73 sqM) Glucose 91 (74-99) mg/dL Calcium 9.5 (8.4-10.2) mg/dL Total Bilirubin 0.4 (0.2-1.3) mg/dL AST 16 (14-36) U/L ALT 13 (9-52) U/L Alkaline Phosphatase 29 L (38-126) U/L Total Protein 7.5 (6.3-8.2) g/dL Albumin 4.4 (3.5-5.0) g/dL Urine Color Urine Appearance (Clear) Urine pH (5.0-8.0) Ur Specific [place] (1.001-1.035) Urine Protein (Negative) Urine Glucose (UA) (Negative) Urine Ketones (Negative) Urine Blood (Negative) Urine Nitrite (Negative) Urine Bilirubin (Negative) Urine Urobilinogen (<2.0) mg/dL Ur Leukocyte Esterase (Negative) Urine RBC (0-5) /hpf Urine WBC (0-5) /hpf Urine HCG, Qual (Not Detectd) Blood Type Blood Type Recheck Bld Type Recheck Status Antibody Screen Spec Expiration Date 05/28/19 05/28/19 05/28/19 Range/Units 12:21 13:10 13:10 WBC (3.8-10.6) k/uL RBC (3.80-5.40) m/uL Hgb (11.4-16.0) gm/dL Hct (34.0-46.0) % MCV (80.0-100.0) fL MCH (25.0-35.0) pg MCHC (31.0-37.0) g/dL RDW (11.5-15.5) % Plt Count (150-450) k/uL Neutrophils % % Lymphocytes % % Monocytes % % Eosinophils % % Basophils % % Neutrophils # (1.3-7.7) k/uL Lymphocytes # (1.0-4.8) k/uL Monocytes # (0-1.0) k/uL Eosinophils # (0-0.7) k/uL Basophils # (0-0.2) k/uL Hypochromasia PT (9.0-12.0) sec INR (<1.2) APTT (22.0-30.0) sec Sodium (137-145) mmol/L Potassium (3.5-5.1) mmol/L Chloride (98-107) mmol/L Carbon Dioxide (22-30) mmol/L Anion Gap mmol/L BUN (7-17) mg/dL Creatinine (0.52-1.04) mg/dL Est GFR (CKD-EPI)AfAm (>60 ml/min/1.73 sqM) Est GFR (CKD-EPI)NonAf (>60 ml/min/1.73 sqM) Glucose (74-99) mg/dL Calcium (8.4-10.2) mg/dL Total Bilirubin (0.2-1.3) mg/dL AST (14-36) U/L ALT (9-52) U/L Alkaline Phosphatase (38-126) U/L Total Protein (6.3-8.2) g/dL Albumin (3.5-5.0) g/dL Urine Color Red Urine Appearance Cloudy H (Clear) Urine pH 6.0 (5.0-8.0) Ur Specific [place] 1.019 (1.001-1.035) Urine Protein 1+ H (Negative) Urine Glucose (UA) Negative (Negative) Urine Ketones Negative (Negative) Urine Blood Large H (Negative) Urine Nitrite Negative (Negative) Urine Bilirubin Negative (Negative) Urine Urobilinogen <2.0 (<2.0) mg/dL Ur Leukocyte Esterase Moderate H (Negative) Urine RBC >182 H (0-5) /hpf Urine WBC 25 H (0-5) /hpf Urine HCG, Qual Not Detected (Not Detectd) Blood Type A Positive Blood Type Recheck A Pos Bld Type Recheck Status No Antibody Screen NEGATIVE Spec Expiration Date 05/31/20192320 Disposition Clinical Impression: Abnormal vaginal bleeding, Ovarian cyst Disposition: HOME SELF-CARE Condition: Stable Instructions (If sedation given, give patient instructions): Dysfunctional Uterine Bleeding (ED), Ruptured Ovarian Cyst (ED) Additional Instructions: Please follow-up with Dr. Hawkins regarding your abnormal vaginal bleeding. You will need a repeat ultrasound in 2-3 months. Return to the emergency room for any new or worsening symptoms Prescriptions: Naproxen [Naprosyn] 500 mg PO BID PRN #20 tablet PRN Reason: Pain Is patient prescribed a controlled substance at d/c from ED?: No Referrals: None,Stated [Primary Care Provider] - 1-2 days Dary Hawkins MD [STAFF PHYSICIAN] - 1-2 days Time of Disposition: 14:47
[2019-05-28 14:52] VITALS: BP 122/81; PULSE 69; TEMP 97.8
== END 2019-05-28 14:52 | disposition home or self-care (01) ==
LOC: EC 11:03
DX: N93.9 Abnormal uterine and vaginal bleeding, unspecified (principal); N83.202 Unspecified ovarian cyst, left side; R80.9 Proteinuria, unspecified; R82.998 Other abnormal findings in urine; Z87.891 Personal history of nicotine dependence
CPT/HCPCS: 99284; 96374; 96375 ×3; 96361; 36415; 86900; 86901; 80053; 85025; 85610; 85730; 86850; 81001; 81025; 93975; 76830; J2270; J1200; J2765; J2405

== ENCOUNTER 2019-08-30 09:08 | Emergency (ER) | payer OTHER ==
[2019-08-30 09:42] VITALS: BP 100/59; PULSE 83; RESP 18; TEMP 98.8
--- NOTE | 2019-08-30 10:35 | ED ---
Female Urogenital HPI - General Chief complaint: Vaginal Bleeding Stated complaint: early preg/vaginal bleeding Time Seen by Provider: 08/30/19 09:43 Source: patient, RN notes reviewed Mode of arrival: ambulatory Limitations: no limitations - History of Present Illness Initial comments: This a 24-year-old female who is A0 presenting to the emergency Department chief complaint of vaginal bleeding in . 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 Patient states that she woke up with some bleeding today and some light spotting last night. She states bright red in nature. She does complain of left lower quadrant pain. Denies any diarrhea constipation no nausea vomiting fevers or chills no dysuria no hematuria. Last Menstrual Period: 06/23/19 - Related Data Previous Rx's Medication Instructions Recorded Naproxen [Naprosyn] 500 mg PO BID PRN #20 tablet 05/28/19 Cephalexin [Keflex] 500 mg PO Q6HR #28 cap 08/30/19 Allergies Allergy/AdvReac Type Severity Reaction Status Date / Time No Known Allergies Allergy Verified 05/28/19 14:23 Review of Systems ROS Statement: Those systems with pertinent positive or pertinent negative responses have been documented in the HPI. ROS Other: All systems not noted in ROS Statement are negative. Past Medical History Past Medical History: No Reported History History of Any Multi-Drug Resistant Organisms: None Reported Past Surgical History: No Surgical Hx Reported Past Anesthesia/Blood Transfusion Reactions: No Reported Reaction Past Psychological History: No Psychological Hx Reported Smoking Status: Former smoker Past Alcohol Use History: Occasional Past Drug Use History: None Reported - Past Family History Mother Family Medical History: No Reported History General Exam Limitations: no limitations General appearance: alert, in no apparent distress Head exam: Present: atraumatic, normocephalic, normal inspection Neck exam: Present: normal inspection. Absent: tenderness, meningismus, lymphadenopathy Respiratory exam: Present: normal lung sounds bilaterally. Absent: respiratory distress, wheezes, rales, rhonchi, stridor Cardiovascular Exam: Present: regular rate, normal rhythm, normal heart sounds. Absent: systolic murmur, diastolic murmur, rubs, gallop, clicks GI/Abdominal exam: Present: soft, tenderness (Mild to moderate left upper quadrant), normal bowel sounds. Absent: distended, guarding, rebound, rigid Back exam: Absent: CVA tenderness (R), CVA tenderness (L) Neurological exam: Present: alert Skin exam: Present: warm, dry, intact, normal color. Absent: rash Course Vital Signs 08/30/19 08/30/19 09:40 11:06 Temperature 98.8 F Pulse Rate 83 Respiratory 18 18 Rate Blood Pressure 100/59 O2 Sat by Pulse 99 Oximetry Medical Decision Making - Medical Decision Making Ultrasound shows single viable IUP 6 weeks and 2 days, patient has evidence of urinary tract infection. Patient was given Rocephin. Patient be discharged return parameters were discussed. - Lab Data Result diagrams: 08/30/19 10:12 08/30/19 10:12 Lab Results 08/30/19 08/30/19 08/30/19 Range/Units 10:12 10:12 10:12 WBC 2.9 L (3.8-10.6) k/uL RBC 4.49 (3.80-5.40) m/uL Hgb 10.8 L (11.4-16.0) gm/dL Hct 34.4 (34.0-46.0) % MCV 76.5 L (80.0-100.0) fL MCH 23.9 L (25.0-35.0) pg MCHC 31.3 (31.0-37.0) g/dL RDW 14.7 (11.5-15.5) % Plt Count 161 (150-450) k/uL Neutrophils % 59 % Lymphocytes % 28 % Monocytes % 4 % Eosinophils % 6 % Basophils % 0 % Neutrophils # 1.7 (1.3-7.7) k/uL Lymphocytes # 0.8 L (1.0-4.8) k/uL Monocytes # 0.1 (0-1.0) k/uL Eosinophils # 0.2 (0-0.7) k/uL Basophils # 0.0 (0-0.2) k/uL Hypochromasia Slight Sodium 137 (137-145) mmol/L Potassium 3.7 (3.5-5.1) mmol/L Chloride 104 (98-107) mmol/L Carbon Dioxide 25 (22-30) mmol/L Anion Gap 8 mmol/L BUN 11 (7-17) mg/dL Creatinine 0.69 (0.52-1.04) mg/dL Est GFR (CKD-EPI)AfAm >90 (>60 ml/min/1.73 sqM) Est GFR (CKD-EPI)NonAf >90 (>60 ml/min/1.73 sqM) Glucose 87 (74-99) mg/dL Calcium 9.7 (8.4-10.2) mg/dL Total Bilirubin 0.7 (0.2-1.3) mg/dL AST 20 (14-36) U/L ALT 11 (4-34) U/L Alkaline Phosphatase 34 L (38-126) U/L Total Protein 7.3 (6.3-8.2) g/dL Albumin 4.3 (3.5-5.0) g/dL HCG, Quant 45128.0 mIU/mL Urine Color Urine Appearance (Clear) Urine pH (5.0-8.0) Ur Specific [place] (1.001-1.035) Urine Protein (Negative) Urine Glucose (UA) (Negative) Urine Ketones (Negative) Urine Blood (Negative) Urine Nitrite (Negative) Urine Bilirubin (Negative) Urine Urobilinogen (<2.0) mg/dL Ur Leukocyte Esterase (Negative) Urine RBC (0-5) /hpf Urine WBC (0-5) /hpf Ur Squamous Epith Cells (0-4) /hpf Amorphous Sediment (None) /hpf Urine Bacteria (None) /hpf Urine Mucus (None) /hpf Blood Type A Positive Blood Type Recheck A Pos Bld Type Recheck Status No 08/30/19 Range/Units 10:12 WBC (3.8-10.6) k/uL RBC (3.80-5.40) m/uL Hgb (11.4-16.0) gm/dL Hct (34.0-46.0) % MCV (80.0-100.0) fL MCH (25.0-35.0) pg MCHC (31.0-37.0) g/dL RDW (11.5-15.5) % Plt Count (150-450) k/uL Neutrophils % % Lymphocytes % % Monocytes % % Eosinophils % % Basophils % % Neutrophils # (1.3-7.7) k/uL Lymphocytes # (1.0-4.8) k/uL Monocytes # (0-1.0) k/uL Eosinophils # (0-0.7) k/uL Basophils # (0-0.2) k/uL Hypochromasia Sodium (137-145) mmol/L Potassium (3.5-5.1) mmol/L Chloride (98-107) mmol/L Carbon Dioxide (22-30) mmol/L Anion Gap mmol/L BUN (7-17) mg/dL Creatinine (0.52-1.04) mg/dL Est GFR (CKD-EPI)AfAm (>60 ml/min/1.73 sqM) Est GFR (CKD-EPI)NonAf (>60 ml/min/1.73 sqM) Glucose (74-99) mg/dL Calcium (8.4-10.2) mg/dL Total Bilirubin (0.2-1.3) mg/dL AST (14-36) U/L ALT (4-34) U/L Alkaline Phosphatase (38-126) U/L Total Protein (6.3-8.2) g/dL Albumin (3.5-5.0) g/dL HCG, Quant mIU/mL Urine Color Yellow Urine Appearance Cloudy H (Clear) Urine pH 7.0 (5.0-8.0) Ur Specific [place] 1.028 (1.001-1.035) Urine Protein 1+ H (Negative) Urine Glucose (UA) Negative (Negative) Urine Ketones 2+ H (Negative) Urine Blood Small H (Negative) Urine Nitrite Positive H (Negative) Urine Bilirubin Negative (Negative) Urine Urobilinogen 4.0 (<2.0) mg/dL Ur Leukocyte Esterase Large H (Negative) Urine RBC 7 H (0-5) /hpf Urine WBC 50 H (0-5) /hpf Ur Squamous Epith Cells 10 H (0-4) /hpf Amorphous Sediment Occasional H (None) /hpf Urine Bacteria Rare H (None) /hpf Urine Mucus Many H (None) /hpf Blood Type Blood Type Recheck Bld Type Recheck Status Disposition Clinical Impression: UTI (urinary tract infection), Disposition: HOME SELF-CARE Condition: Stable Instructions (If sedation given, give patient instructions): Urinary Tract Infection in (ED) Additional Instructions: Please return to the Emergency Department if symptoms worsen or any other concerns. Prescriptions: Cephalexin [Keflex] 500 mg PO Q6HR #28 cap Is patient prescribed a controlled substance at d/c from ED?: No Referrals: None,Stated [Primary Care Provider] - 1-2 days Time of Disposition: 12:30
[2019-08-30] MEDS ORDERED: ONDANSETRON 4 MG/2 ML VIAL IVP STA (10:53)
[2019-08-30 11:22] LABS: Basophils % (A) 0 %; Eosinophils # (A) 0.2 k/uL (0-0.7); Eosinophils % (A) 6 %; HCT 34.4 % (34.0-46.0); HGB 10.8 gm/dL (11.4-16.0); Hypochromasia Slight; Lymphocytes # (A) 0.8 k/uL (1.0-4.8); Lymphocytes % (A) 28 %; MCH 23.9 pg (25.0-35.0); MCHC 31.3 g/dL (31.0-37.0); MCV 76.5 fL (80.0-100.0); Mean Platelet Volume 7.2; Monocytes # (A) 0.1 k/uL (0-1.0); Monocytes % (A) 4 %; Neutrophils # (A) 1.7 k/uL (1.3-7.7); Neutrophils % (A) 59 %; Platelet Count 161 k/uL (150-450); RBC 4.49 m/uL (3.80-5.40); RDW 14.7 % (11.5-15.5); WBC 2.9 k/uL (3.8-10.6)
[2019-08-30 11:25] LABS: ALT 11 U/L (4-34); AST 20 U/L (14-36); African American GFR (CKD) >90 (>60 ml/min/1.73 sqM); Albumin 4.3 g/dL (3.5-5.0); Alkaline Phosphatase 34 U/L (38-126); Anion Gap 8 mmol/L; Blood Urea Nitrogen 11 mg/dL (7-17); Calcium 9.7 mg/dL (8.4-10.2); Carbon Dioxide 25 mmol/L (22-30); Chloride 104 mmol/L (98-107); Glucose 87 mg/dL (74-99); Non-African American GFR(CKD) >90 (>60 ml/min/1.73 sqM); Potassium 3.7 mmol/L (3.5-5.1); Sodium 137 mmol/L (137-145); Total Bilirubin 0.7 mg/dL (0.2-1.3); Total Protein 7.3 g/dL (6.3-8.2)
--- NOTE | 2019-08-30 11:45 | US ---
EXAMINATION TYPE: Transabdominal DATE OF EXAM: 08/30/2019 11:31 AM COMPARISON: Pelvic ultrasound dated 05/28/2019 CLINICAL HISTORY: LLQ pain, . EXAM PERFORMED: Transvaginal (TV) and Transabdominal (TA) EXAM MEASUREMENTS: GESTATIONAL AGE / DATING Physician Established: Not yet established Dates by LMP: (9 weeks/5 days) EDC: 03/29/20 Dates by First Scan: No previous this is first scan Dates by Current Scan for: (6 weeks/2 days) EDC: 04/22/20 MATERNAL ANATOMY Uterus: 7.5 x 5.0 x 5.3cm Right Ovary: 2.2 x 1.7 x 1.9cm Left Ovary: 1.9 x 2.0 x 2.1cm Post CDS / Adnexa: wnl Presence of free fluid: in cul de sac Presence of corpus luteal cyst: 1.4cm Presence of subchorionic bleed: 1.0cm GESTATION / SURVEY CRL: 0.5 (6 weeks/2 days) Yolk Sac (normal less than 6mm): 2mm Heart Rate: 119 bpm Rhythm: Normal IUP: Viable IUP Date of LMP: 06/23/20 Beta HcG (if available): Not available at this time IMPRESSION: Single live intrauterine with a sonographic age of 6 weeks and 2 days and estimated date of delivery of 04/22/2020. Small adjacent subchorionic hemorrhage is seen. Moderate amount of free fluid is redemonstrated within the posterior cul-de-sac as seen on the prior ultrasound of 05/28/2019.
[2019-08-30 11:49] LABS: Amorphous Sediment,Urine Occasional /hpf; Appearance,Urine Cloudy (Clear); Bacteria,Urine Rare /hpf; Bilirubin,Urine Negative (Negative); Blood,Urine Small (Negative); Color,Urine Yellow; Glucose,Urine (UA) Negative (Negative); Ketones,Urine 2+ (Negative); Leukocyte Esterase,Urine Large (Negative); Mucus,Urine Many /hpf; Nitrite,Urine Positive (Negative); Protein,Urine 1+ (Negative); RBC,Urine 7 /hpf (0-5); Specific Gravity,Urine 1.028 (1.001-1.035); Squamous Epithelial Cell,Urine 10 /hpf (0-4); WBC,Urine 50 /hpf (0-5)
[2019-08-30] MEDS ORDERED: cefTRIAXone IN SWFI 1,000 MG/10 ML SYRINGE IVP STA (12:28)
== END 2019-08-30 13:15 | disposition home or self-care (01) ==
LOC: EC 09:08
DX: O23.41 Unspecified infection of urinary tract in pregnancy, first trimester (principal); Z3A.01 Less than 8 weeks gestation of pregnancy; Z87.891 Personal history of nicotine dependence
CPT/HCPCS: 36415; 86900; 86901; 80053; 85025; 81001; 84702; 87086; 76801; 76817; 99284; 96374; 96375; J2405; J0696

== ENCOUNTER 2019-09-17 08:31 | Emergency (ER) | payer OTHER ==
[2019-09-17 08:35] VITALS: RESP 18; TEMP 98
[2019-09-17] MEDS ORDERED: ACETAMINOPHEN TAB 500 MG TAB PO STA (08:46)
--- NOTE | 2019-09-17 08:53 | ED ---
Abdominal Pain HPI - General Chief Complaint: Abdominal Pain Stated Complaint: abdominal cramping, 9 weeks preg Time Seen by Provider: 09/17/19 08:38 Source: patient, RN notes reviewed, old records reviewed Mode of arrival: ambulatory Limitations: no limitations - History of Present Illness Initial Comments: Patient is a 24-year-old female, . She is approximately 9 weeks . She presents today for general abdominal cramping. She reports it seems to be bilateral cramping. Denies any vaginal bleeding or discharge. She denies any chest pain shortness of breath. His complete of some minor dysuria as well. - Related Data Previous Rx's Medication Instructions Recorded Naproxen [Naprosyn] 500 mg PO BID PRN #20 tablet 05/28/19 Cephalexin [Keflex] 500 mg PO Q6HR #28 cap 08/30/19 Metoclopramide [Reglan] 10 mg PO ACHS #12 tab 09/17/19 Allergies Allergy/AdvReac Type Severity Reaction Status Date / Time No Known Allergies Allergy Verified 09/17/19 08:32 Review of Systems ROS Statement: Those systems with pertinent positive or pertinent negative responses have been documented in the HPI. ROS Other: All systems not noted in ROS Statement are negative. Past Medical History Past Medical History: No Reported History History of Any Multi-Drug Resistant Organisms: None Reported Past Surgical History: No Surgical Hx Reported Past Anesthesia/Blood Transfusion Reactions: No Reported Reaction Past Psychological History: No Psychological Hx Reported Smoking Status: Former smoker Past Alcohol Use History: Occasional Past Drug Use History: None Reported - Past Family History Mother Family Medical History: No Reported History General Exam - General Exam Comments Initial Comments: 24 year old female, no distress. Limitations: no limitations General appearance: alert, in no apparent distress Head exam: Present: atraumatic, normocephalic, normal inspection Eye exam: Present: normal appearance, PERRL, EOMI. Absent: scleral icterus, conjunctival injection, periorbital swelling ENT exam: Present: normal exam, mucous membranes moist Neck exam: Present: normal inspection. Absent: tenderness, meningismus, lymphadenopathy Respiratory exam: Present: normal lung sounds bilaterally. Absent: respiratory distress, wheezes, rales, rhonchi, stridor Cardiovascular Exam: Present: regular rate, normal rhythm, normal heart sounds. Absent: systolic murmur, diastolic murmur, rubs, gallop, clicks GI/Abdominal exam: Present: soft, normal bowel sounds. Absent: distended, tenderness, guarding, rebound, rigid External exam: Present: normal external exam Speculum exam: Present: normal speculum exam, vaginal discharge (minimal white discharge). Absent: vaginal bleeding Extremities exam: Present: normal inspection, full ROM, normal capillary refill. Absent: tenderness, pedal edema, joint swelling, calf tenderness Back exam: Present: normal inspection Neurological exam: Present: alert, oriented X3, CN II-XII intact Psychiatric exam: Present: normal affect, normal mood Skin exam: Present: warm, dry, intact, normal color. Absent: rash Course Vital Signs 09/17/19 09/17/19 09/17/19 08:33 11:05 11:14 Temperature 98 F 98 F Pulse Rate 107 H 79 79 Respiratory 18 18 18 Rate Blood Pressure 112/65 98/72 98/72 O2 Sat by Pulse 99 100 100 Oximetry Medical Decision Making - Medical Decision Making 24 year old female with cramping and lower abdomianl pain in . She is Rh positive. No bleeding on vaginal exam. Patient UA shows no infection. US shows viable IUP. Discussed ligament stretching causing cramping and pain. Discussed return parameters and OB follow up. - Lab Data Result diagrams: 09/17/19 09:02 Lab Results 09/17/19 09/17/19 09/17/19 Range/Units 09:02 09:02 09:02 WBC 3.2 L (3.8-10.6) k/uL RBC 4.11 (3.80-5.40) m/uL Hgb 9.9 L (11.4-16.0) gm/dL Hct 31.0 L (34.0-46.0) % MCV 75.5 L (80.0-100.0) fL MCH 24.2 L (25.0-35.0) pg MCHC 32.1 (31.0-37.0) g/dL RDW 14.2 (11.5-15.5) % Plt Count 146 L (150-450) k/uL Neutrophils % 65 % Lymphocytes % 24 % Monocytes % 5 % Eosinophils % 3 % Basophils % 0 % Neutrophils # 2.1 (1.3-7.7) k/uL Lymphocytes # 0.8 L (1.0-4.8) k/uL Monocytes # 0.2 (0-1.0) k/uL Eosinophils # 0.1 (0-0.7) k/uL Basophils # 0.0 (0-0.2) k/uL HCG, Quant 731167.0 mIU/mL Urine Color Urine Appearance (Clear) Urine pH (5.0-8.0) Ur Specific [place] (1.001-1.035) Urine Protein (Negative) Urine Glucose (UA) (Negative) Urine Ketones (Negative) Urine Blood (Negative) Urine Nitrite (Negative) Urine Bilirubin (Negative) Urine Urobilinogen (<2.0) mg/dL Ur Leukocyte Esterase (Negative) Urine RBC (0-5) /hpf Urine WBC (0-5) /hpf Ur Squamous Epith Cells (0-4) /hpf Urine Mucus (None) /hpf Trichomonas Ag (Rapid) (Negative) Blood Type A Positive Blood Type Recheck A Pos Bld Type Recheck Status No 09/17/19 09/17/19 Range/Units 10:12 11:04 WBC (3.8-10.6) k/uL RBC (3.80-5.40) m/uL Hgb (11.4-16.0) gm/dL Hct (34.0-46.0) % MCV (80.0-100.0) fL MCH (25.0-35.0) pg MCHC (31.0-37.0) g/dL RDW (11.5-15.5) % Plt Count (150-450) k/uL Neutrophils % % Lymphocytes % % Monocytes % % Eosinophils % % Basophils % % Neutrophils # (1.3-7.7) k/uL Lymphocytes # (1.0-4.8) k/uL Monocytes # (0-1.0) k/uL Eosinophils # (0-0.7) k/uL Basophils # (0-0.2) k/uL HCG, Quant mIU/mL Urine Color Yellow Urine Appearance Cloudy H (Clear) Urine pH 7.0 (5.0-8.0) Ur Specific [place] 1.033 (1.001-1.035) Urine Protein 1+ H (Negative) Urine Glucose (UA) Negative (Negative) Urine Ketones Trace H (Negative) Urine Blood Negative (Negative) Urine Nitrite Negative (Negative) Urine Bilirubin Negative (Negative) Urine Urobilinogen 4.0 (<2.0) mg/dL Ur Leukocyte Esterase Moderate H (Negative) Urine RBC 3 (0-5) /hpf Urine WBC 5 (0-5) /hpf Ur Squamous Epith Cells 16 H (0-4) /hpf Urine Mucus Many H (None) /hpf Trichomonas Ag (Rapid) Negative (Negative) Blood Type Blood Type Recheck Bld Type Recheck Status - Radiology Data Radiology results: report reviewed Single live IUP with mean crown rump length measuring 2.2cm corresponding to 8 week 6 day old fetus. Satisfactory growth. Disposition Clinical Impression: Abdominal cramping affecting Disposition: HOME SELF-CARE Condition: Good Instructions (If sedation given, give patient instructions): Abdominal Pain in (ED) Additional Instructions: Patient advised to take Tylenol for cramping and use nausea medicine as prescribed. Return to the emergency department if any alarming signs or symptoms occur. Prescriptions: Metoclopramide [Reglan] 10 mg PO ACHS #12 tab Is patient prescribed a controlled substance at d/c from ED?: No Referrals: None,Stated [Primary Care Provider] - 1-2 days Time of Disposition: 11:04
[2019-09-17 09:12] LABS: Basophils % (A) 0 %; Eosinophils # (A) 0.1 k/uL (0-0.7); Eosinophils % (A) 3 %; HGB 9.9 gm/dL (11.4-16.0); Lymphocytes # (A) 0.8 k/uL (1.0-4.8); Lymphocytes % (A) 24 %; MCH 24.2 pg (25.0-35.0); MCHC 32.1 g/dL (31.0-37.0); MCV 75.5 fL (80.0-100.0); Mean Platelet Volume 7.7; Monocytes # (A) 0.2 k/uL (0-1.0); Monocytes % (A) 5 %; Neutrophils # (A) 2.1 k/uL (1.3-7.7); Neutrophils % (A) 65 %; Platelet Count 146 k/uL (150-450); RBC 4.11 m/uL (3.80-5.40); RDW 14.2 % (11.5-15.5); WBC 3.2 k/uL (3.8-10.6)
--- NOTE | 2019-09-17 10:07 | US ---
EXAMINATION TYPE: Transabdominal DATE OF EXAM: 09/17/2019 9:57 AM COMPARISON: Prior ultrasound August 30, 2019 CLINICAL HISTORY: pain. Positive hCG test. EXAM PERFORMED: Transabdominal (TA) EXAM MEASUREMENTS: GESTATIONAL AGE / DATING Physician Established: Not yet Dates by First Scan: (8 weeks/6 days) EDC: 04/22/20 Dates by Current Scan for: (8 weeks/ days) EDC: 04/22/20 MATERNAL ANATOMY Uterus: 7.9 x 5.5 x 7.2cm Right Ovary: 3.4 x 2.4 x 2.7cm Left Ovary: 2.2 x 1.4 x 1.3cm Post CDS / Adnexa: wnl Presence of free fluid: no Presence of subchorionic bleed: no GESTATION / SURVEY CRL: 2.2cm ( 8 weeks/6 days) Yolk Sac (normal less than 6mm): 3mm Heart Rate: 149 bpm Rhythm: Normal IUP: Viable IUP Beta HcG (if available): Not available at this time Single live intrauterine gestation is redemonstrated as gestational sac, yolk sac, pole are aga in seen. No free fluid. Interval growth. Both ovaries again seen. No suspicious adnexal masses. IMPRESSION: Single live intrauterine gestation with mean crown-rump length 2.2 cm corresponding to 8 week 6 day old fetus. Satisfactory interval growth.
[2019-09-17] MEDS ORDERED: METOCLOPRAMIDE 10 MG TAB PO STA (10:21)
[2019-09-17 10:58] LABS: Appearance,Urine Cloudy (Clear); Bilirubin,Urine Negative (Negative); Blood,Urine Negative (Negative); Color,Urine Yellow; Glucose,Urine (UA) Negative (Negative); Ketones,Urine Trace (Negative); Leukocyte Esterase,Urine Moderate (Negative); Mucus,Urine Many /hpf; Nitrite,Urine Negative (Negative); Protein,Urine 1+ (Negative); RBC,Urine 3 /hpf (0-5); Specific Gravity,Urine 1.033 (1.001-1.035); Squamous Epithelial Cell,Urine 16 /hpf (0-4); WBC,Urine 5 /hpf (0-5)
[2019-09-17 11:06] VITALS: BP 98/72; PULSE 79
[2019-09-19 12:48] LABS: C. trachomatis,PCR Negative (Neg,Equiv); Chlamydia trachomatis Source Vagina; N. gonorrhoeae,PCR Negative (Neg,Equiv); Neisseria Source Vagina
== END 2019-09-17 11:19 | disposition home or self-care (01) ==
LOC: EC 08:31
DX: O26.891 Other specified pregnancy related conditions, first trimester (principal); R10.9 Unspecified abdominal pain; Z3A.09 9 weeks gestation of pregnancy; Z87.891 Personal history of nicotine dependence
CPT/HCPCS: 36415; 76801; 81001; 84702; 85025; 86900; 86901; 87070; 87491; 87591; 87808; 99284

== ENCOUNTER 2020-02-26 23:08 | Outpatient (CLI) | payer OTHER ==
[2020-02-27 01:28] VITALS: BP 109/58; PULSE 94; RESP 16; TEMP 98.1
--- NOTE | 2020-03-15 07:58 | P.MSEPDOC ---
Presenting Problems - Arrival Data Date of Arrival on Unit: 02/26/20 Time of Arrival on Unit: 23:08 Mode of Transport: Wheelchair - Complaint OB-Reason for Admission/Chief Complaint: Possible Onset of Labor, Pain Comment: cntrx/abd pain since friday Medical History - Information : 2 Para: 1 Term: 1 : 0 Abortions: Spontaneous or Elective: 0 Number of Living Children: 1 - Gestational Age Gestational Age by LIUDMILA (wks/days): 32 Weeks and 1 Days Review of Systems - Review of Systems Constitutional: No problems Breast: No problems ENT: No problems Cardiovascular: No problems Respiratory: No problems Gastrointestinal: No problems Genitourinary: No problems Musculoskeletal: No problems Neurological: No problems Skin: No problems Vital Signs - Temperature Temperature: 98.1 F Temperature Source: Temporal Artery Scan - Pulse Right Pulse Rate: 94 Pulse Assessment Method: Pulse Oximetry - Respirations Respiratory Rate: 16 O2 Sat by Pulse Oximetry: 98 - Blood Pressure Right Arm Blood Pressure: 109/58 Blood Pressure Mean: 75 Blood Pressure Source: Automatic Cuff Medical Screen Scoring (Pre) - Cervical Exam Dilation: 0 cm = 0 Membranes: Intact - Uterine Contractions Frequency: > 5 minutes apart = 1 Intensity: N/A - Maternal Vital Signs Maternal Temperature: N/A Maternal Blood Pressure: N/A Signs of Preeclampsia: N/A Maternal Respirations: N/A - Maternal Trauma Maternal Trauma: N/A - Assessment - Baby A Baseline FHR: 140 Heart Rate - NICHD Category: Category I (Normal) = 0 NST: Reactive Position: N/A - Total Score - Baby A Total Score - Baby A: 1 - Total Score - Baby B Total Score - Baby B: 1 - Total Score - Baby C Total Score - Baby C: 1 - Level of Risk - Baby A Level of Risk - Baby A: Low (0-5) - Level of Risk - Baby B Level of Risk - Baby B: Low (0-5) - Level of Risk - Baby C Level of Risk - Baby C: Low (0-5) Physician Notification (Pre) - Physician Notified Physician Notified Date: 02/26/20 Physician Notified Time: 23:38 - Notification Comment Comment: called Dr Sanchez at home. Reported on pt's c/o cntrx since friday that are becoming more frequently and more intensely. reported on fhts, cntrx pattern, abd soft,. vitals, no bleeding or leaking. orders to obtain ffn, check cervix, monitor for one hour. orders to send ffn even if closed. if pt is della more than every 5 mins, start IV fluids. 0110- Dr Sanchez in dept. Reported on SVE unchanged, ffn negative, pts pain better, cntrx are irreg, fhts. orders to d/c home with instructions, return with new or worsening sx Disposition - Disposition OB Disposition: Discharge to home Discharge Date: 02/27/20 Discharge Time: 01:20 I agree with the RN Medical Screening Exam: Yes Risk & Benefit of care provided described in d/c instruction: Yes Diagnosis: OTHER UTERINE INERTIA
== END 2020-02-27 01:20 | disposition home or self-care (01) ==
LOC: FBPOP 23:08
PROVIDERS: ATTEND Obstetrics & Gynecology
DX: O62.2 Other uterine inertia (principal); Z3A.32 32 weeks gestation of pregnancy
CPT/HCPCS: 59025; 82731; G0463; 99213

== ENCOUNTER 2020-03-10 12:24 | Outpatient (CLI) | payer OTHER ==
[2020-03-10 15:23] VITALS: BP 104/61; RESP 18; TEMP 96.8
[2020-03-10 17:10] VITALS: PULSE 72
--- NOTE | 2020-03-11 10:55 | P.MSEPDOC ---
Presenting Problems - Arrival Data Date of Arrival on Unit: 03/10/20 Time of Arrival on Unit: 12:50 Mode of Transport: Ambulatory Vital Signs - Temperature Temperature: 96.8 F Temperature Source: Temporal Artery Scan - Pulse Right Brachial Pulse Rate: 72 Pulse Assessment Method: Automatic Cuff - Respirations Respiratory Rate: 18 Oxygen Delivery Method: Room Air - Blood Pressure Right Arm Blood Pressure: 104/61 Blood Pressure Mean: 75 Blood Pressure Source: Automatic Cuff Physician Notification (Pre) - Physician Notified Spoke With: eddie Mathis Order Received: Yes - Notification Comment Comment: discharge home to keep next sched appt Medical Screen Scoring (Post) - Cervical Exam Dilation: 0 cm = 0 Membranes: Intact - Uterine Contractions Frequency: N/A Duration: N/A Intensity: N/A - Maternal Vital Signs Maternal Temperature: N/A Maternal Blood Pressure: N/A Signs of Preeclampsia: N/A Maternal Respirations: N/A - Pain Assessment Pain Location and Character: Abdomen Pain Scale Used: Numeric (1 - 10) Pain Intensity: 8 Pain Description: *Chronic Pain Frequency: Intermittent Pain Duration Units: Days Pain Behavior: Facial Grimacing, Moving Slowly Pain Aggravating Factors: Activity Non-Pharmacological Interventions: Darkened Room - Maternal Trauma Maternal Trauma: N/A - Assessment - Baby A Heart Rate: 140 Heart Rate - NICHD Category: Category I (Normal) = 0 NST: Reactive Position: N/A Station: N/A - Total Score Total Score - Baby A: 0 Total Score - Baby B: 0 Total Score - Baby C: 0 - Post Treatment Level of Risk Post Treatment Level of Risk - Baby A: Low (0-5) Post Treatment Level of Risk - Baby B: Low (0-5) Post Treatment Level of Risk - Baby C: Low (0-5) Physician Notification (Post) - Physician Notified Physician Notified Date: 03/10/20 Physician Notified Time: 13:45 Spoke With: EDDIE Mathis Order Received: Yes - Notification Comment Comment: DISCHARGE HOME. TO KEEP NEXT SCHED APPT. KICK COUNTS DAILY. RETURN IF SYMPTOMS WORSENING Disposition - Disposition OB Disposition: Discharge to home Discharge Date: 03/10/20 Discharge Time: 14:30 I agree with the RN Medical Screening Exam: Yes Risk & Benefit of care provided described in d/c instruction: Yes Diagnosis: FALSE LABOR BEFORE 37 COMPLETED WEEKS OF GEST, THIRD TRI
== END 2020-03-10 14:45 | disposition home or self-care (01) ==
LOC: FBPOP 12:24
PROVIDERS: ATTEND Obstetrics & Gynecology
DX: O47.03 False labor before 37 completed weeks of gestation, third trimester (principal); Z3A.00 Weeks of gestation of pregnancy not specified
CPT/HCPCS: 59025; G0463; 99213

== ENCOUNTER 2020-04-04 21:04 | Outpatient (CLI) | payer OTHER ==
[2020-04-04 22:36] VITALS: BP 103/63; PULSE 76; RESP 16; TEMP 96.7
--- NOTE | 2020-04-08 11:16 | P.MSEPDOC ---
Presenting Problems - Arrival Data Date of Arrival on Unit: 04/04/20 Time of Arrival on Unit: 21:04 Mode of Transport: Ambulatory - Complaint OB-Reason for Admission/Chief Complaint: Possible Onset of Labor Medical History - Information : 2 Para: 1 Term: 1 : 0 Abortions: Spontaneous or Elective: 0 Number of Living Children: 1 - Gestational Age Gestational Age by LIUDMILA (wks/days): 37 Weeks and 3 Days Review of Systems - Review of Systems Constitutional: No problems Breast: No problems ENT: No problems Cardiovascular: No problems Respiratory: No problems Gastrointestinal: No problems Genitourinary: No problems Musculoskeletal: No problems Neurological: No problems Skin: No problems Vital Signs - Temperature Temperature: 96.7 F Temperature Source: Temporal Artery Scan - Pulse Right Pulse Rate: 76 Pulse Assessment Method: Automatic Cuff - Respirations Respiratory Rate: 16 Oxygen Delivery Method: Room Air O2 Sat by Pulse Oximetry: 100 - Blood Pressure Right Arm Blood Pressure: 103/63 Blood Pressure Mean: 76 Blood Pressure Source: Automatic Cuff Medical Screen Scoring (Pre) - Cervical Exam Dilation: 1-3 cm = 1 Effacement: More than 50% = 2 Membranes: Intact - Uterine Contractions Frequency: > 5 minutes apart = 1 Duration: N/A Intensity: N/A - Maternal Vital Signs Maternal Temperature: N/A Maternal Blood Pressure: N/A Signs of Preeclampsia: N/A Maternal Respirations: N/A - Assessment - Baby A Baseline FHR: 130 Heart Rate - NICHD Category: Category I (Normal) = 0 NST: Reactive Position: N/A Station: N/A - Total Score - Baby A Total Score - Baby A: 4 - Total Score - Baby B Total Score - Baby B: 4 - Total Score - Baby C Total Score - Baby C: 4 - Level of Risk - Baby A Level of Risk - Baby A: Low (0-5) - Level of Risk - Baby B Level of Risk - Baby B: Low (0-5) - Level of Risk - Baby C Level of Risk - Baby C: Low (0-5) Physician Notification (Pre) - Physician Notified Physician Notified Date: 04/04/20 Physician Notified Time: 22:25 New Order Received: Yes (discharge home) Disposition - Disposition OB Disposition: Discharge to home Discharge Date: 04/04/20 Discharge Time: 22:30 I agree with the RN Medical Screening Exam: Yes Risk & Benefit of care provided described in d/c instruction: Yes Diagnosis: FALSE LABOR AT OR AFTER 37 COMPLETED WEEKS OF GESTATION
== END 2020-04-04 22:30 | disposition home or self-care (01) ==
LOC: FBPOP 21:04
PROVIDERS: ATTEND Obstetrics & Gynecology
DX: O47.1 False labor at or after 37 completed weeks of gestation (principal); Z3A.37 37 weeks gestation of pregnancy
CPT/HCPCS: 59025; G0463; 99213

== ENCOUNTER 2020-04-06 08:12 | Outpatient (CLI) | payer OTHER ==
[2020-04-06 10:02] VITALS: PULSE 68; RESP 16; TEMP 97
--- NOTE | 2020-04-08 11:17 | P.MSEPDOC ---
Presenting Problems - Arrival Data Date of Arrival on Unit: 04/06/20 Time of Arrival on Unit: 08:12 Mode of Transport: Ambulatory - Complaint OB-Reason for Admission/Chief Complaint: Possible Onset of Labor Comment: Contrx for several days, more regular thru the night Medical History - Information : 2 Para: 1 Term: 1 : 0 Abortions: Spontaneous or Elective: 0 Number of Living Children: 1 - Gestational Age Gestational Age by LIUDMILA (wks/days): 37 Weeks and 5 Days Review of Systems - Review of Systems Constitutional: No problems Breast: No problems ENT: No problems Cardiovascular: No problems Respiratory: No problems Gastrointestinal: No problems Genitourinary: No problems Musculoskeletal: No problems Neurological: No problems Skin: No problems Vital Signs - Temperature Temperature: 97 F Temperature Source: Temporal Artery Scan - Pulse Right Sitting Brachial Pulse Rate: 68 Pulse Assessment Method: Automatic Cuff - Respirations Respiratory Rate: 16 Oxygen Delivery Method: Room Air O2 Sat by Pulse Oximetry: 100 Medical Screen Scoring (Pre) - Cervical Exam Dilation: 1-3 cm = 1 Effacement: More than 50% = 2 Membranes: Intact - Uterine Contractions Frequency: < 36 weeks = 6 Duration: > 40 seconds = 2 Intensity: N/A - Maternal Vital Signs Maternal Temperature: N/A Maternal Blood Pressure: N/A Signs of Preeclampsia: N/A Maternal Respirations: N/A - Maternal Trauma Maternal Trauma: N/A - Assessment - Baby A Baseline FHR: 130 Heart Rate - NICHD Category: Category I (Normal) = 0 NST: Reactive Position: N/A Station: N/A - Total Score - Baby A Total Score - Baby A: 11 - Total Score - Baby B Total Score - Baby B: 11 - Total Score - Baby C Total Score - Baby C: 11 - Level of Risk - Baby A Level of Risk - Baby A: High (10+) - Level of Risk - Baby B Level of Risk - Baby B: High (10+) - Level of Risk - Baby C Level of Risk - Baby C: High (10+) Physician Notification (Pre) - Physician Notified Physician Notified Date: 04/06/20 Physician Notified Time: 09:45 New Order Received: Yes - Notification Comment Comment: Valentina frazier\Dr. Hernández, advsd , 37 67, SVE 2/-2, firm, contx q2-5m, no cervical chng since TR visit 2 days ago. Appt c\Dr. Hernández today at 1600. States to offer to be watched another hour or to be d/c home. If pt stays, no need to call if no SVE after. another hr. Pt states feels comfortable to go home at this time. Disposition - Disposition OB Disposition: Discharge to home, Written follow up instructions reviewed Discharge Date: 04/06/20 Discharge Time: 09:58 I agree with the RN Medical Screening Exam: Yes Risk & Benefit of care provided described in d/c instruction: Yes Diagnosis: FALSE LABOR AT OR AFTER 37 COMPLETED WEEKS OF GESTATION
== END 2020-04-06 09:58 | disposition home or self-care (01) ==
LOC: FBPOP 08:12
PROVIDERS: ATTEND Obstetrics & Gynecology
DX: O47.1 False labor at or after 37 completed weeks of gestation (principal); Z3A.37 37 weeks gestation of pregnancy
CPT/HCPCS: 59025; G0463; 99213

== ENCOUNTER 2020-04-13 05:45 | Inpatient (IN) | payer OTHER ==
[2020-04-13] MEDS ORDERED: TERBUTALINE 1 MG/ML VIAL SQ PRN (06:13)
[2020-04-13] MEDS ORDERED: METHYLERGONOVINE 0.2 MG/ML 1 ML AMP IM PRN (06:13)
[2020-04-13] MEDS ORDERED: LIDOCAINE 0.5% (PF) 5 MG/ML (50 ML SDV) SQ PRN (06:13)
[2020-04-13] MEDS ORDERED: OXYTOCIN 10 UNIT/ML 1 ML VIAL IM PRN (06:13)
[2020-04-13] MEDS ORDERED: CARBOPROST TROMETHAMINE 250 MCG/ML 1 ML AMP IM PRN (06:13)
[2020-04-13] MEDS ORDERED: BUTORPHANOL 1 MG/ML 1 ML VIAL IV PRN (06:14)
[2020-04-13 06:46] LABS: Anisocytosis Slight; Basophils % (A) 0 %; Eosinophils # (A) 0.2 k/uL (0-0.7); Eosinophils % (A) 3 %; HCT 29.7 % (34.0-46.0); Hypochromasia Moderate; Lymphocytes # (A) 1.1 k/uL (1.0-4.8); Lymphocytes % (A) 16 %; MCHC 30.3 g/dL (31.0-37.0); MCV 76.1 fL (80.0-100.0); Mean Platelet Volume 8.2; Microcytosis Slight; Monocytes # (A) 0.4 k/uL (0-1.0); Monocytes % (A) 5 %; Neutrophils # (A) 5.1 k/uL (1.3-7.7); Neutrophils % (A) 73 %; Platelet Count 152 k/uL (150-450); RDW 16.5 % (11.5-15.5)
[2020-04-13] MEDS: LACTATED RINGERS 1,000 ML IV SCH ×2 (06:53→16:42)
--- NOTE | 2020-04-13 07:02 | P.HPOB ---
History of Present Illness H&P Date: 04/13/20 Chief Complaint: SROM, labor 25-year-old presents at 38 weeks and 4 days complaining of contractions and spontaneous rupture membranes at 5:30 AM. She is della every 2-4 minutes. heart tones are 135 with moderate variability and reactive. Cervix is 2 cm dilated, 70% effaced, -2 station. Review of Systems All systems: negative Constitutional: Denies chills, Denies fever Eyes: denies blurred vision, denies pain Ears, nose, mouth and throat: Denies headache, Denies sore throat Cardiovascular: Denies chest pain, Denies shortness of breath Respiratory: Denies cough Gastrointestinal: Denies abdominal pain, Denies diarrhea, Denies nausea, Denies vomiting Genitourinary: Denies dysuria, Denies hematuria Musculoskeletal: Denies myalgias Integumentary: Denies pruritus, Denies rash Neurological: Denies numbness, Denies weakness Psychiatric: Denies anxiety, Denies depression Endocrine: Denies fatigue, Denies weight change Past Medical History Additional Past Medical History / Comment(s): Sickle cell anemia. Obstetric history: She's had one previous vaginal delivery with Dr. Hernández. She's been seeing Dr. Hernández first and Dr. York for the sickle cell anemia. History of Any Multi-Drug Resistant Organisms: None Reported Past Surgical History: No Surgical Hx Reported Past Anesthesia/Blood Transfusion Reactions: No Reported Reaction Smoking Status: Never smoker - Past Family History Mother Family Medical History: No Reported History Medications and Allergies Home Medications Medication Instructions Recorded Confirmed Type Pnv,Calcium 72/Iron/Folic Acid 1 each PO DAILY MDD 1 02/26/20 04/13/20 History [ Plus Tablet] Allergies Allergy/AdvReac Type Severity Reaction Status Date / Time No Known Allergies Allergy Verified 04/13/20 06:04 Exam Osteopathic Statement: *. No significant issues noted on an osteopathic structural exam other than those noted in the History and Physical/Consult. Vital Signs Temp Pulse Resp BP Pulse Ox 04/13/20 06:00 97.5 F L 66 18 117/76 100 Intake and Output 04/12/20 04/12/20 04/13/20 14:59 22:59 06:59 Other: Weight 73.936 kg Heart: Regular rate and rhythm Lungs: Clear to auscultation bilaterally Abdomen: Soft, nontender Extremities: Negative Homans sign Results Result Diagrams: 04/13/20 06:35 Abnormal Lab Results - Last 24 Hours (Table) 04/13/20 Range/Units 06:35 Hgb 9.0 L (11.4-16.0) gm/dL Hct 29.7 L (34.0-46.0) % MCV 76.1 L (80.0-100.0) fL MCH 23.0 L (25.0-35.0) pg MCHC 30.3 L (31.0-37.0) g/dL RDW 16.5 H (11.5-15.5) % Assessment and Plan (1) Spontaneous rupture of amniotic membranes Current Visit: Yes Status: Acute Code(s): NZU8166 - SNOMED Code(s): 685621394 (2) Normal labor Current Visit: Yes Status: Acute Code(s): O80 - ENCOUNTER FOR FULL-TERM UNCOMPLICATED DELIVERY; Z37.9 - OUTCOME OF DELIVERY, UNSPECIFIED SNOMED Code(s): 67577448 (3) Sickle cell anemia Current Visit: Yes Status: Acute Code(s): D57.1 - SICKLE-CELL DISEASE WITHOUT CRISIS SNOMED Code(s): 006720070 Plan: 1. Admit to family place 2. Pain control with IV pain medicine in an epidural when she is making cervical change. 3. Continuous monitoring 4. Anticipate normal vaginal delivery
[2020-04-13] MEDS ORDERED: OXYTOCIN 30 UNITS/500 ML NS 30 UNIT in SALINE 1 500ML.BAG IV SCH (09:30)
[2020-04-13] MEDS ORDERED: MEASLES-MUMPS-RUBELLA VACC/PF 12,500 UNIT/0.5 ML VIAL SQ ONE (13:31)
[2020-04-13] MEDS ORDERED: LANOLIN CREAM 5 GM TUBE TOPICAL PRN (13:31)
[2020-04-13] MEDS ORDERED: diphenhydrAMINE 50 MG CAP PO PRN (13:31)
[2020-04-13] MEDS ORDERED: HYDROcodone/APAP 5-325MG 1 EACH TAB PO PRN (13:31)
[2020-04-13] MEDS ORDERED: SIMETHICONE 80 MG CHEWABLE PO PRN (13:31)
[2020-04-13] MEDS ORDERED: ZOLPIDEM 5 MG TAB PO PRN (13:31)
[2020-04-13] MEDS ORDERED: diphenhydrAMINE 25 MG CAP PO PRN (13:31)
[2020-04-13] MEDS ORDERED: HYDROCORTISONE 2.5% RECTAL CREAM 30 GM TUBE RECTAL PRN (13:31)
[2020-04-13] MEDS ORDERED: diphenhydrAMINE 50 MG/ML 1 ML VIAL IVP PRN ×2 (13:31)
[2020-04-13] MEDS ORDERED: BENZOCAINE/MENTHOL SPRAY 1 GM/SPRAY AEROSOL TOPICAL PRN (13:31)
--- NOTE | 2020-04-13 13:33 | P.PROBDLV ---
Vaginal Delivery Note - . Vaginal Delivery Note: Patient progressed complete and pushed with spontaneous vaginal delivery of a viable male over secondary midline laceration. Baby delivered with nurse was present as I was en route to the room. Spontaneous cry is noted. No nuchal cord was noted. 8 was Aung on the bed. I arrived. Umbilical cords clamped cut usual fashion nursery personnel was present to assume care and the mouth nares were bulb suctioned. Placenta was then delivered intact Pitocin was added to the IV. Second degree perineal laceration was then repaired with 3-0 Vicryl fine 1% Xylocaine for analgesia. scores 8 and 9 at one and 5 minutes respectively weight was 6 lbs. 14 oz. and both mother and baby are currently stable following delivery.
[2020-04-13] MEDS ORDERED: OXYTOCIN 20 UNITS/1000 ML NS 1,000 ML IV SCH (13:45)
[2020-04-13] MEDS: IBUPROFEN 600 MG TAB PO PRN ×2 (15:12→21:29)
[2020-04-13] MEDS: ACETAMINOPHEN TAB 325 MG TAB PO PRN (17:05)
[2020-04-13 21:15] VITALS: RESP 16
[2020-04-13] MEDS: SENNOSIDES-DOCUSATE SODIUM 1 EACH TAB PO SCH (21:16)
[2020-04-14] MEDS: LACTATED RINGERS 1,000 ML IV SCH (00:19)
[2020-04-14] MEDS: ACETAMINOPHEN TAB 325 MG TAB PO PRN (01:58)
[2020-04-14] MEDS: IBUPROFEN 600 MG TAB PO PRN (07:31)
[2020-04-14] MEDS: SENNOSIDES-DOCUSATE SODIUM 1 EACH TAB PO SCH (07:31)
[2020-04-14 08:07] VITALS: BP 114/85; PULSE 89; TEMP 99
[2020-04-14 08:31] LABS: Anisocytosis Slight; Basophils % (A) 0 %; Eosinophils # (A) 0.1 k/uL (0-0.7); Eosinophils % (A) 1 %; HCT 26.4 % (34.0-46.0); HGB 7.9 gm/dL (11.4-16.0); Hypochromasia Marked; Lymphocytes % (A) 11 %; MCH 23.1 pg (25.0-35.0); MCHC 30.1 g/dL (31.0-37.0); Mean Platelet Volume 8.3; Microcytosis Slight; Monocytes # (A) 0.6 k/uL (0-1.0); Monocytes % (A) 6 %; Neutrophils # (A) 7.7 k/uL (1.3-7.7); Neutrophils % (A) 80 %; Platelet Count 147 k/uL (150-450); RBC 3.43 m/uL (3.80-5.40); RDW 16.7 % (11.5-15.5); WBC 9.6 k/uL (3.8-10.6)
--- NOTE | 2020-04-14 12:51 | P.DS ---
Providers Date of admission: 04/13/20 06:24 Expected date of discharge: 04/14/20 Attending physician: Dilcia Hernández Primary care physician: Stated None - Discharge Diagnosis(es) (1) Spontaneous rupture of amniotic membranes Current Visit: Yes Status: Resolved (2) Normal labor Current Visit: Yes Status: Resolved (3) Sickle cell anemia Current Visit: Yes Status: Resolved (4) Normal vaginal delivery Current Visit: Yes Status: Acute Hospital Course: Patient presented with spontaneous rupture membranes and in labor. She underwent normal vaginal delivery. Post course was uncomplicated. She'll be discharged home day #1 in stable condition to follow-up with Dr. Hernández in 6 weeks. Plan - Discharge Summary New Discharge Prescriptions: New Ibuprofen [Motrin] 600 mg PO Q6HR PRN #30 tab PRN Reason: Mild Pain Or Fever >= 100.5 No Action Pnv,Calcium 72/Iron/Folic Acid [ Plus Tablet] 1 each PO DAILY MDD 1 Discharge Medication List Pnv,Calcium 72/Iron/Folic Acid [ Plus Tablet] 1 each PO DAILY MDD 1 02/26/20 [History] Ibuprofen [Motrin] 600 mg PO Q6HR PRN #30 tab 04/14/20 [Rx] Follow up Appointment(s)/Referral(s): Jody Sanchez DO [Doctor of Osteopathic Medicine] - 6 Weeks Discharge Disposition: HOME SELF-CARE
== END 2020-04-14 14:00 | disposition home or self-care (01) | DRG 807 ==
LOC: FBPOP 05:45 → 4FBP 06:24
PROVIDERS: ADMIT Obstetrics & Gynecology; ATTEND Obstetrics & Gynecology
PROC: 0KQM0ZZ Repair Perineum Muscle, Open Approach (ICD-10-PCS; principal; 2020-04-13)
PROC: 10E0XZZ Delivery of Products of Conception, External Approach (ICD-10-PCS; principal; 2020-04-13)
DX: O99.02 Anemia complicating childbirth (principal); Z37.0 Single live birth; D57.1 Sickle-cell disease without crisis; O70.1 Second degree perineal laceration during delivery; Z3A.38 38 weeks gestation of pregnancy
CPT/HCPCS: 59025; 84112; 85025; 86850; 86900; 86901; 99213

== ENCOUNTER 2021-02-13 18:52 | Emergency (ER) | payer OTHER ==
[2021-02-13 19:19] VITALS: TEMP 98
[2021-02-13 20:35] LABS: Basophils % (A) 1 %; Eosinophils # (A) 0.4 k/uL (0-0.7); Eosinophils % (A) 11 %; HGB 10.3 gm/dL (11.4-16.0); Hypochromasia Slight; Lymphocytes # (A) 1.4 k/uL (1.0-4.8); Lymphocytes % (A) 38 %; MCH 23.7 pg (25.0-35.0); MCHC 32.2 g/dL (31.0-37.0); MCV 73.5 fL (80.0-100.0); Microcytosis Slight; Monocytes # (A) 0.2 k/uL (0-1.0); Monocytes % (A) 5 %; Neutrophils # (A) 1.5 k/uL (1.3-7.7); Neutrophils % (A) 42 %; Platelet Count 185 k/uL (150-450); RBC 4.35 m/uL (3.80-5.40); RDW 15.5 % (11.5-15.5); WBC 3.5 k/uL (3.8-10.6)
[2021-02-13 20:36] LABS: Appearance,Urine Clear (Clear); Bilirubin,Urine Negative (Negative); Blood,Urine Negative (Negative); Color,Urine Yellow; Glucose,Urine (UA) Negative (Negative); Ketones,Urine Negative (Negative); Leukocyte Esterase,Urine Negative (Negative); Nitrite,Urine Negative (Negative); PH, Urine 6.5 (5.0-8.0); Protein,Urine Trace (Negative); Specific Gravity,Urine 1.027 (1.001-1.035); Urobilinogen,Urine <2.0 mg/dL (<2.0)
[2021-02-13 20:49] LABS: ALT 8 U/L (4-34); AST 21 U/L (14-36); African American GFR (CKD) >90 (>60 ml/min/1.73 sqM); Albumin 4.3 g/dL (3.5-5.0); Alkaline Phosphatase 36 U/L (38-126); Amylase 107 U/L (30-110); Anion Gap 6 mmol/L; Blood Urea Nitrogen 17 mg/dL (7-17); Calcium 9.4 mg/dL (8.4-10.2); Carbon Dioxide 24 mmol/L (22-30); Chloride 107 mmol/L (98-107); Glucose 91 mg/dL (74-99); Lipase 72 U/L (23-300); Non-African American GFR(CKD) >90 (>60 ml/min/1.73 sqM); Potassium 4.3 mmol/L (3.5-5.1); Sodium 137 mmol/L (137-145); Total Bilirubin 0.1 mg/dL (0.2-1.3)
[2021-02-13] MEDS ORDERED: KETOROLAC 15 MG/ML 1 ML VIAL IVP STA (21:07)
--- NOTE | 2021-02-13 21:48 | US ---
EXAMINATION TYPE: US transvaginal DATE OF EXAM: 02/13/2021 COMPARISON: US CLINICAL HISTORY: pain, bleeding. Pain and bleeding x 10 months per patient. . TECHNIQUE: Transvaginal (TV). Date of LMP: 04/13/2020 EXAM MEASUREMENTS: Uterus: 6.8 x 5.1 x 3.2 cm Endometrial Stripe: 0.14 cm Right Ovary: 3.6 x 3.0 x 2.6 cm Left Ovary: 2.5 x 1.6 x 1.8 cm 1. Uterus: Anteverted Appears to be wnl. 2. Endometrium: Appears to be wnl. 3. Right Ovary: Multiple anechoic areas seen. Largest: 2.1 x 1.9 x 1.3 cm. 4. Left Ovary: Multiple subcentimeter anechoic areas seen. Spectral, color and waveform doppler imaging shows arterial and venous flow within the ovaries. 5. Bilateral Adnexa: Fluid seen in right adnexa: 0.8 x 0.5 x 0.7 cm. 6. Posterior cul-de-sac: Fluid seen measurin.8 x 1.2 x 1.7 cm. IMPRESSION: There is small amount of free fluid in the pelvis that could be physiologic. No solid adnexal mass. N o evidence of ovarian torsion. Normal uterus. Simple ovarian cysts.
--- NOTE | 2021-02-13 22:19 | ED ---
General Adult HPI - General Chief complaint: Vaginal Bleeding Stated complaint: vaginal bleeding, abd pain Time Seen by Provider: 02/13/21 19:28 Source: patient Mode of arrival: ambulatory Limitations: no limitations - History of Present Illness Initial comments: 25-year-old female with a past medical history of sickle cell anemia presents to the emergency room for a chief complaint of vaginal bleeding. Patient reports that since her 10 months ago she has had constant vaginal bleeding. Patient states she has seen her MACHINE GROUP LEADER several times for this. She has had an IUD placed. She has tried a double shot. Nothing is helping the bleeding. Patient states she also has had pain with this for about 7 months. The pain comes and goes. It returned again today. Patient states that she called her MACHINE GROUP LEADER who stated to come into the ER. Patient denies fevers. Denies nausea vomiting diarrhea.Patient has no other complaints at this time including shortness of breath, chest pain, nausea or vomiting, headache, or visual changes. - Related Data Home Medications Medication Instructions Recorded Confirmed Pnv,Calcium 72/Iron/Folic Acid 1 each PO DAILY MDD 1 02/26/20 04/13/20 [ Plus Tablet] Previous Rx's Medication Instructions Recorded Ibuprofen [Motrin] 600 mg PO Q6HR PRN #30 tab 04/14/20 Allergies Allergy/AdvReac Type Severity Reaction Status Date / Time No Known Allergies Allergy Verified 02/13/21 19:16 Review of Systems ROS Statement: Those systems with pertinent positive or pertinent negative responses have been documented in the HPI. ROS Other: All systems not noted in ROS Statement are negative. Past Medical History Past Medical History: No Reported History Additional Past Medical History / Comment(s): Sickle cell anemia. Obstetric history: She's had one previous vaginal delivery with Dr. Hernández. She's been seeing Dr. Hernández first and Dr. York for the sickle cell anemia. History of Any Multi-Drug Resistant Organisms: None Reported Past Surgical History: No Surgical Hx Reported Past Anesthesia/Blood Transfusion Reactions: No Reported Reaction Past Psychological History: No Psychological Hx Reported Smoking Status: Current every day smoker Past Alcohol Use History: None Reported Past Drug Use History: None Reported - Past Family History Mother Family Medical History: No Reported History General Exam Limitations: no limitations General appearance: alert, in no apparent distress Head exam: Present: atraumatic, normocephalic, normal inspection Eye exam: Present: normal appearance, PERRL, EOMI. Absent: scleral icterus, conjunctival injection, periorbital swelling ENT exam: Present: normal exam, mucous membranes moist Neck exam: Present: normal inspection. Absent: tenderness, meningismus, lymphadenopathy Respiratory exam: Present: normal lung sounds bilaterally. Absent: respiratory distress, wheezes, rales, rhonchi, stridor Cardiovascular Exam: Present: regular rate, normal rhythm, normal heart sounds. Absent: systolic murmur, diastolic murmur, rubs, gallop, clicks GI/Abdominal exam: Present: soft, normal bowel sounds. Absent: distended, tenderness, guarding, rebound, rigid Course Vital Signs 02/13/21 02/13/21 19:16 20:19 Temperature 98 F Pulse Rate 69 88 Respiratory 16 20 Rate Blood Pressure 106/66 112/65 O2 Sat by Pulse 94 L 98 Oximetry Medical Decision Making - Medical Decision Making vitals are stable. CBC does show chronic anemia likely related to sickle cell disease. CMP unremarkable. Urinalysis negative. HCG is negative. Transvaginal ultrasound shows small amount of free fluid that could be physiologic. No solid adnexal mass. No evidence of torsion. Normal uterus. Simple cysts noted. Patient was given Toradol did have improvement in symptoms. At this time I recommend she follow up with her MACHINE GROUP LEADER. Patient reports she is also concerned the pain could be GI related, referral given. She will return for any worsening symptoms. - Lab Data Result diagrams: 02/13/21 20:10 02/13/21 20:10 Lab Results 02/13/21 02/13/21 02/13/21 Range/Units 20:10 20:10 20:10 WBC 3.5 L (3.8-10.6) k/uL RBC 4.35 (3.80-5.40) m/uL Hgb 10.3 L (11.4-16.0) gm/dL Hct 32.0 L (34.0-46.0) % MCV 73.5 L (80.0-100.0) fL MCH 23.7 L (25.0-35.0) pg MCHC 32.2 (31.0-37.0) g/dL RDW 15.5 (11.5-15.5) % Plt Count 185 (150-450) k/uL MPV 7.0 Neutrophils % 42 % Lymphocytes % 38 % Monocytes % 5 % Eosinophils % 11 % Basophils % 1 % Neutrophils # 1.5 (1.3-7.7) k/uL Lymphocytes # 1.4 (1.0-4.8) k/uL Monocytes # 0.2 (0-1.0) k/uL Eosinophils # 0.4 (0-0.7) k/uL Basophils # 0.0 (0-0.2) k/uL Hypochromasia Slight Microcytosis Slight Sodium (137-145) mmol/L Potassium (3.5-5.1) mmol/L Chloride (98-107) mmol/L Carbon Dioxide (22-30) mmol/L Anion Gap mmol/L BUN (7-17) mg/dL Creatinine (0.52-1.04) mg/dL Est GFR (CKD-EPI)AfAm (>60 ml/min/1.73 sqM) Est GFR (CKD-EPI)NonAf (>60 ml/min/1.73 sqM) Glucose (74-99) mg/dL Calcium (8.4-10.2) mg/dL Total Bilirubin (0.2-1.3) mg/dL AST (14-36) U/L ALT (4-34) U/L Alkaline Phosphatase (38-126) U/L Total Protein (6.3-8.2) g/dL Albumin (3.5-5.0) g/dL Amylase (30-110) U/L Lipase (23-300) U/L Urine Color Yellow Urine Appearance Clear (Clear) Urine pH 6.5 (5.0-8.0) Ur Specific [place] 1.027 (1.001-1.035) Urine Protein Trace H (Negative) Urine Glucose (UA) Negative (Negative) Urine Ketones Negative (Negative) Urine Blood Negative (Negative) Urine Nitrite Negative (Negative) Urine Bilirubin Negative (Negative) Urine Urobilinogen <2.0 (<2.0) mg/dL Ur Leukocyte Esterase Negative (Negative) Urine HCG, Qual Not Detected (Not Detectd) 02/13/21 Range/Units 20:10 WBC (3.8-10.6) k/uL RBC (3.80-5.40) m/uL Hgb (11.4-16.0) gm/dL Hct (34.0-46.0) % MCV (80.0-100.0) fL MCH (25.0-35.0) pg MCHC (31.0-37.0) g/dL RDW (11.5-15.5) % Plt Count (150-450) k/uL MPV Neutrophils % % Lymphocytes % % Monocytes % % Eosinophils % % Basophils % % Neutrophils # (1.3-7.7) k/uL Lymphocytes # (1.0-4.8) k/uL Monocytes # (0-1.0) k/uL Eosinophils # (0-0.7) k/uL Basophils # (0-0.2) k/uL Hypochromasia Microcytosis Sodium 137 (137-145) mmol/L Potassium 4.3 (3.5-5.1) mmol/L Chloride 107 (98-107) mmol/L Carbon Dioxide 24 (22-30) mmol/L Anion Gap 6 mmol/L BUN 17 (7-17) mg/dL Creatinine 0.79 (0.52-1.04) mg/dL Est GFR (CKD-EPI)AfAm >90 (>60 ml/min/1.73 sqM) Est GFR (CKD-EPI)NonAf >90 (>60 ml/min/1.73 sqM) Glucose 91 (74-99) mg/dL Calcium 9.4 (8.4-10.2) mg/dL Total Bilirubin 0.1 L (0.2-1.3) mg/dL AST 21 (14-36) U/L ALT 8 (4-34) U/L Alkaline Phosphatase 36 L (38-126) U/L Total Protein 7.0 (6.3-8.2) g/dL Albumin 4.3 (3.5-5.0) g/dL Amylase 107 (30-110) U/L Lipase 72 (23-300) U/L Urine Color Urine Appearance (Clear) Urine pH (5.0-8.0) Ur Specific [place] (1.001-1.035) Urine Protein (Negative) Urine Glucose (UA) (Negative) Urine Ketones (Negative) Urine Blood (Negative) Urine Nitrite (Negative) Urine Bilirubin (Negative) Urine Urobilinogen (<2.0) mg/dL Ur Leukocyte Esterase (Negative) Urine HCG, Qual (Not Detectd) Disposition Clinical Impression: Dysfunctional uterine bleeding, Ovarian cyst Disposition: HOME SELF-CARE Condition: Good Instructions (If sedation given, give patient instructions): Dysfunctional Uterine Bleeding (ED), Ovarian Cyst (ED) Additional Instructions: Please follow up with GI as well as your shake backboard notcher. Return to the emergency room for any worsening symptoms. Is patient prescribed a controlled substance at d/c from ED?: No Referrals: Jennifer Rivera MD [STAFF PHYSICIAN] - 1-2 days Dilcia Hernández DO [Doctor of Osteopathic Medicine] - 1-2 days Time of Disposition: 22:18
[2021-02-13] MEDS ORDERED: ACETAMINOPHEN TAB 500 MG TAB PO STA (22:36)
[2021-02-13 22:41] VITALS: BP 127/81; PULSE 78; RESP 18
[2021-02-14 15:16] LABS: C. trachomatis,PCR Negative (Neg,Equiv); Chlamydia trachomatis Source Urine; N. gonorrhoeae,PCR Negative (Neg,Equiv); Neisseria Source Urine
== END 2021-02-13 22:40 | disposition home or self-care (01) ==
LOC: EC 18:52
DX: N93.8 Other specified abnormal uterine and vaginal bleeding (principal); N83.209 Unspecified ovarian cyst, unspecified side; D57.1 Sickle-cell disease without crisis; F17.200 Nicotine dependence, unspecified, uncomplicated
CPT/HCPCS: 36415; 80053; 82150; 83690; 85025; 81003; 81025; 87491; 87591; 93975; 76830; 99284; 96374; J1885

== ENCOUNTER 2021-07-27 23:18 | Emergency (ER) | payer OTHER ==
[2021-07-27 23:58] VITALS: BP 115/53; PULSE 93; RESP 22; TEMP 98.7
== END 2021-07-28 01:09 | disposition left against medical advice (07) ==
LOC: EC 23:18
DX: R25.2 Cramp and spasm (principal); M79.10 Myalgia, unspecified site; Z53.21 Procedure and treatment not carried out due to patient leaving prior to being seen by health care provider
CPT/HCPCS: 87635; 99499

== ENCOUNTER 2022-09-13 11:06 | Emergency (ER) | payer OTHER ==
[2022-09-13 11:10] VITALS: RESP 20
[2022-09-13] MEDS ORDERED: SODIUM CHLORIDE 0.9% 1,000 ML IV STA (11:28)
[2022-09-13] MEDS ORDERED: MORPHINE SULFATE 4 MG/ML SYRINGE IVP STA (11:28)
--- NOTE | 2022-09-13 11:38 | ED ---
Abdominal Pain HPI - General Chief Complaint: Abdominal Pain Stated Complaint: abd pain Time Seen by Provider: 09/13/22 11:12 Source: patient, RN notes reviewed Mode of arrival: ambulatory Limitations: no limitations - History of Present Illness Initial Comments: Patient is a 27-year-old -[place] female presenting to the emergency room with complaints of left lower quadrant abdominal pain radiating into her left flank ongoing for approximately 48 hours with worsening intensity over the last 24 hours. She reports an episode of diarrhea without any blood or mucus earlier today and an episode of nausea and vomiting yesterday. She continues to have some nausea without vomiting today. She complains of hot and cold flashes but has not checked her temperature to evaluate for any fevers. She also reports an episode of vaginal bleeding last night. She has very irregular menstrual cycles with occasional spotting due to the use of Depo-Provera for her control. She denies any concerns for STDs. She denies any urinary frequency, dysuria or hematuria not related to vaginal bleeding yesterday. She does have a history of ovarian cysts and sickle cell anemia. - Related Data Home Medications Medication Instructions Recorded Confirmed No Known Home Medications 09/13/22 09/13/22 Allergies Allergy/AdvReac Type Severity Reaction Status Date / Time No Known Allergies Allergy Verified 09/13/22 12:43 Review of Systems ROS Statement: Those systems with pertinent positive or pertinent negative responses have been documented in the HPI. ROS Other: All systems not noted in ROS Statement are negative. Past Medical History Past Medical History: Blood Disorder Additional Past Medical History / Comment(s): Sickle cell anemia. Obstetric history: She's had one previous vaginal delivery with Dr. Hernández. She's been seeing Dr. Hernández first and Dr. York for the sickle cell anemia. History of Any Multi-Drug Resistant Organisms: None Reported Past Surgical History: No Surgical Hx Reported Past Anesthesia/Blood Transfusion Reactions: No Reported Reaction Past Psychological History: No Psychological Hx Reported Smoking Status: Current every day smoker, Vaper Past Alcohol Use History: None Reported Past Drug Use History: None Reported - Past Family History Mother Family Medical History: No Reported History General Exam - General Exam Comments Initial Comments: GENERAL: No acute distress, well developed, well nourished. HEENT: Normocephalic, atraumatic. Pupils equal, round, reactive to light. Moist mucous membranes. LUNGS: No respiratory distress. Clear to auscultation, no adventitious sounds, no use of accessory muscles. HEART: Regular rate and rhythm without murmur, rub, or gallop. ABDOMEN: Normal bowel sounds. Soft, non-distended. Mild tenderness bilateral lower quadrants more severe to left lower quadrant. BACK: Normal inspection. Left CVA tenderness. No CVA tenderness to right. EXTREMITIES: No edema. No tenderness. Moves all extremities. NEUROLOGIC: Alert & oriented x 3. CN II-XII grossly intact. PSYCHIATRIC: Normal affect and behavior. DERMATOLOGIC: Skin intact, without rashes or lesions noted. Limitations: no limitations Course Vital Signs 09/13/22 09/13/22 09/13/22 11:07 11:46 14:04 Temperature 98 F 99.4 F Pulse Rate 78 75 76 Respiratory 20 20 20 Rate Blood Pressure 111/68 111/68 112/77 O2 Sat by Pulse 96 99 99 Oximetry Medical Decision Making - Medical Decision Making Was pt. sent in by a medical professional or institution (, PA, MALTED MILK MIXER, urgent care, hospital, or fpc...) When possible be specific @ -No Did you speak to anyone other than the patient for history (EMS, parent, family, police, friend...)? What history was obtained from this source @ -No Did you review nursing and triage notes (agree or disagree)? Why? @ -I reviewed and agree with nursing and triage notes Were old charts reviewed (outside hosp., previous admission, EMS record, old EKG, old radiological studies, urgent care reports/EKG's, fpc records)? Report findings @ -Transvaginal ultrasound completed January 2021 Differential Diagnosis (chest pain, altered mental status, abdominal pain women, abdominal pain men, vaginal bleeding, weakness, fever, dyspnea, syncope, head ache, dizziness, GI bleed, back pain, seizure, CVA, palpatations, mental health)? @ -Differential Abdominal Pain Women: Appendicitis, Cholecystitis, diverticulosis, ischemic bowel, pancreatitis, hepatitis, UTI, gastroenteritis, AAA, incarcerated hernia, bowel obstruction, constipation, inflammatory bowel, hepatitis, peptic ulcer disease, splenic infarction, perforated viscus, vulvitis, ovarian torsion, PID, kidney stone, placenta abruption, this is not meant to be an all-inclusive list EKG interpreted by me (3pts min.). @ -None done X-rays interpreted by me (1pt min.). @ -None done CT interpreted by me (1pt min.). @ -CT of the abdomen pelvis without contrast demonstrates free fluid in the cul-de-sac and small intestine fluid consistent with enteritis. No evidence of renal calculi, diverticulitis or hydronephrosis. U/S interpreted by me (1pt. min.). @ -None done What testing was considered but not performed or refused? (CT, X-rays, U/S, labs)? Why? @ -None What meds were considered but not given or refused? Why? @ -None Did you discuss the management of the patient with other professionals (professionals i.e. , PA, MALTED [employer] MIXER, lab, RT, psych nurse, criminal justice social worker, showroom manager, teacher, community liaison officer, rehabilitation case coordinator)? Give summary @ -No Was smoking cessation discussed for >3mins.? @ -No Was critical care preformed (if so, how long)? @ -No Were there social determinants of health that impacted care today? How? (Homelessness, low income, unemployed, alcoholism, drug addiction, transportation, low edu. Level, literacy, decrease access to med. care, snf, rehab)? @ -No Was there de-escalation of care discussed even if they declined (Discuss DNR or withdrawal of care, Hospice)? DNR status @ -No What co-morbidities impacted this encounter? (DM, HTN, Smoking, COPD, CAD, Cancer, CVA, ARF, Chemo, Hep., AIDS, mental health diagnosis, sleep apnea, morbid obesity)? @ -None Was patient admitted / discharged? Hospital course, mention meds given and route, prescriptions, significant lab abnormalities, going to OR and other pertinent info. @ - 27 year old AAF presenting with LLQ abdominal pain radiating to left flank/back with diarrhea x1 and mild nausea with vomiting. Will give IV fluids and morphine for pain. Will start work up with CBC, CMP, amylase, lipase, UA along with urine for . Pain improved with morphine but increase in nausea will give Zofran. Laboratory studies results include CBC with pancytopenia consistent with previous anemia, leukopenia and thrombocytopenia. CMP with low alkaline phosphatase at 35 otherwise no abnormalities. Amylase and lipase normal. Urinalysis with trace leukocyte esterase, no blood, no ketones, no bacteria, urine for negative. In the setting of abdominal pain, flank pain and nausea without significant abnormalities to labs will proceed with diagnostic imaging of CT of the abdomen and pelvis without contrast. Nausea improved after Zofran. CT of the abdomen and pelvis consistent with enteritis. Symptomatic management of enteritis including good oral hydration, medication for nausea and pain discussed at length. Will give starter packs of Zofran and Tylenol 3's for pain. Encouraged follow-up with her primary care provider. Return parameters to the emergency room reviewed. Questions and concerns answered. Will discharge home in stable condition with symptomatic management for gastroenteritis. Undiagnosed new problem with uncertain prognosis? @ -No Drug Therapy requiring intensive monitoring for toxicity (Heparin, Nitro, Insulin, Cardizem)? @ -No Were any procedures done? @ -No Diagnosis/symptom? @ -Gastroenteritis Acute, or Chronic, or Acute on Chronic? @ -Acute Uncomplicated (without systemic symptoms) or Complicated (systemic symptoms)? @ -Uncomplicated Side effects of treatment? @ -No Exacerbation, Progression, or Severe Exacerbation? @ -No Poses a threat to life or bodily function? How? (Chest pain, [place], [place], pneumonia, PE, COPD, DKA, ARF, appy, cholecystitis, CVA, Diverticulitis, Homicidal, Suicidal, threat to staff... and all critical care pts) @ -No Case discussed with Dr. Bianchi. - Lab Data Result diagrams: 09/13/22 11:31 09/13/22 11:31 Lab Results 09/13/22 09/13/22 09/13/22 Range/Units 11:31 11:31 11:31 WBC 3.4 L (3.8-10.6) k/uL RBC 4.81 (3.80-5.40) m/uL Hgb 11.3 L (11.4-16.0) gm/dL Hct 36.1 (34.0-46.0) % MCV 75.0 L (80.0-100.0) fL MCH 23.4 L (25.0-35.0) pg MCHC 31.2 (31.0-37.0) g/dL RDW 15.8 H (11.5-15.5) % Plt Count 137 L (150-450) k/uL MPV 6.9 Neutrophils % 73 % Lymphocytes % 16 % Monocytes % 4 % Eosinophils % 5 % Basophils % 0 % Neutrophils # 2.5 (1.3-7.7) k/uL Lymphocytes # 0.5 L (1.0-4.8) k/uL Monocytes # 0.1 (0-1.0) k/uL Eosinophils # 0.2 (0-0.7) k/uL Basophils # 0.0 (0-0.2) k/uL Microcytosis Slight Sodium (137-145) mmol/L Potassium (3.5-5.1) mmol/L Chloride (98-107) mmol/L Carbon Dioxide (22-30) mmol/L Anion Gap mmol/L BUN (7-17) mg/dL Creatinine (0.52-1.04) mg/dL Est GFR (CKD-EPI)AfAm (>60 ml/min/1.73 sqM) Est GFR (CKD-EPI)NonAf (>60 ml/min/1.73 sqM) Glucose (74-99) mg/dL Calcium (8.4-10.2) mg/dL Total Bilirubin (0.2-1.3) mg/dL AST (14-36) U/L ALT (4-34) U/L Alkaline Phosphatase (38-126) U/L Total Protein (6.3-8.2) g/dL Albumin (3.5-5.0) g/dL Amylase (30-110) U/L Lipase (23-300) U/L Urine Color Yellow Urine Appearance Clear (Clear) Urine pH 5.5 (5.0-8.0) Ur Specific [place] 1.021 (1.001-1.035) Urine Protein Negative (Negative) Urine Glucose (UA) Negative (Negative) Urine Ketones Negative (Negative) Urine Blood Negative (Negative) Urine Nitrite Negative (Negative) Urine Bilirubin Negative (Negative) Urine Urobilinogen <2.0 (<2.0) mg/dL Ur Leukocyte Esterase Trace H (Negative) Urine RBC <1 (0-5) /hpf Urine WBC 1 (0-5) /hpf Ur Squamous Epith Cells 1 (0-4) /hpf Urine Mucus Rare H (None) /hpf Urine HCG, Qual Not Detected (Not Detectd) 09/13/22 Range/Units 11:31 WBC (3.8-10.6) k/uL RBC (3.80-5.40) m/uL Hgb (11.4-16.0) gm/dL Hct (34.0-46.0) % MCV (80.0-100.0) fL MCH (25.0-35.0) pg MCHC (31.0-37.0) g/dL RDW (11.5-15.5) % Plt Count (150-450) k/uL MPV Neutrophils % % Lymphocytes % % Monocytes % % Eosinophils % % Basophils % % Neutrophils # (1.3-7.7) k/uL Lymphocytes # (1.0-4.8) k/uL Monocytes # (0-1.0) k/uL Eosinophils # (0-0.7) k/uL Basophils # (0-0.2) k/uL Microcytosis Sodium 139 (137-145) mmol/L Potassium 4.0 (3.5-5.1) mmol/L Chloride 107 (98-107) mmol/L Carbon Dioxide 25 (22-30) mmol/L Anion Gap 7 mmol/L BUN 16 (7-17) mg/dL Creatinine 0.76 (0.52-1.04) mg/dL Est GFR (CKD-EPI)AfAm >90 (>60 ml/min/1.73 sqM) Est GFR (CKD-EPI)NonAf >90 (>60 ml/min/1.73 sqM) Glucose 87 (74-99) mg/dL Calcium 8.9 (8.4-10.2) mg/dL Total Bilirubin 0.5 (0.2-1.3) mg/dL AST 22 (14-36) U/L ALT 13 (4-34) U/L Alkaline Phosphatase 35 L (38-126) U/L Total Protein 7.4 (6.3-8.2) g/dL Albumin 4.5 (3.5-5.0) g/dL Amylase 99 (30-110) U/L Lipase 62 (23-300) U/L Urine Color Urine Appearance (Clear) Urine pH (5.0-8.0) Ur Specific [place] (1.001-1.035) Urine Protein (Negative) Urine Glucose (UA) (Negative) Urine Ketones (Negative) Urine Blood (Negative) Urine Nitrite (Negative) Urine Bilirubin (Negative) Urine Urobilinogen (<2.0) mg/dL Ur Leukocyte Esterase (Negative) Urine RBC (0-5) /hpf Urine WBC (0-5) /hpf Ur Squamous Epith Cells (0-4) /hpf Urine Mucus (None) /hpf Urine HCG, Qual (Not Detectd) - Radiology Data Radiology results: report reviewed, image reviewed Disposition Clinical Impression: Gastroenteritis Disposition: HOME SELF-CARE Condition: Stable Instructions (If sedation given, give patient instructions): Gastroenteritis (ED) Additional Instructions: Please utilize Tylenol 3 starter pack for pain as needed along with Zofran starter pack for nausea vomiting as needed. Stay well hydrated. Please follow-up with your primary care provider. Please return to the Emergency Department if symptoms worsen or any other concerns. Is patient prescribed a controlled substance at d/c from ED?: No Referrals: None,Stated [Primary Care Provider] - 1-2 days Time of Disposition: 13:40
[2022-09-13 12:14] LABS: Basophils % (A) 0 %; Eosinophils # (A) 0.2 k/uL (0-0.7); Eosinophils % (A) 5 %; HCT 36.1 % (34.0-46.0); HGB 11.3 gm/dL (11.4-16.0); Lymphocytes # (A) 0.5 k/uL (1.0-4.8); Lymphocytes % (A) 16 %; MCH 23.4 pg (25.0-35.0); MCHC 31.2 g/dL (31.0-37.0); Mean Platelet Volume 6.9; Microcytosis Slight; Monocytes # (A) 0.1 k/uL (0-1.0); Monocytes % (A) 4 %; Neutrophils # (A) 2.5 k/uL (1.3-7.7); Neutrophils % (A) 73 %; Platelet Count 137 k/uL (150-450); RBC 4.81 m/uL (3.80-5.40); RDW 15.8 % (11.5-15.5); WBC 3.4 k/uL (3.8-10.6)
[2022-09-13 12:23] LABS: ALT 13 U/L (4-34); AST 22 U/L (14-36); African American GFR (CKD) >90 (>60 ml/min/1.73 sqM); Albumin 4.5 g/dL (3.5-5.0); Alkaline Phosphatase 35 U/L (38-126); Amylase 99 U/L (30-110); Anion Gap 7 mmol/L; Blood Urea Nitrogen 16 mg/dL (7-17); Calcium 8.9 mg/dL (8.4-10.2); Carbon Dioxide 25 mmol/L (22-30); Chloride 107 mmol/L (98-107); Glucose 87 mg/dL (74-99); Lipase 62 U/L (23-300); Non-African American GFR(CKD) >90 (>60 ml/min/1.73 sqM); Sodium 139 mmol/L (137-145); Total Bilirubin 0.5 mg/dL (0.2-1.3); Total Protein 7.4 g/dL (6.3-8.2)
[2022-09-13] MEDS ORDERED: ONDANSETRON 4 MG/2 ML VIAL IVP STA (12:33)
[2022-09-13 12:38] LABS: Appearance,Urine Clear (Clear); Bilirubin,Urine Negative (Negative); Blood,Urine Negative (Negative); Color,Urine Yellow; Glucose,Urine (UA) Negative (Negative); Ketones,Urine Negative (Negative); Leukocyte Esterase,Urine Trace (Negative); Mucus,Urine Rare /hpf; Nitrite,Urine Negative (Negative); PH, Urine 5.5 (5.0-8.0); Protein,Urine Negative (Negative); RBC,Urine <1 /hpf (0-5); Specific Gravity,Urine 1.021 (1.001-1.035); Squamous Epithelial Cell,Urine 1 /hpf (0-4); Urobilinogen,Urine <2.0 mg/dL (<2.0); WBC,Urine 1 /hpf (0-5)
--- NOTE | 2022-09-13 13:22 | CT ---
EXAMINATION TYPE: CT abdomen pelvis wo con DATE OF EXAM: 09/13/2022 COMPARISON: None HISTORY: 27-year-old female Abdominal pain, ovarian cyst history CT DLP: 434.6 mGycm. Automated exposure control for dose reduction was used. TECHNIQUE: Contiguous axial scanning of the abdomen and pelvis without IV contrast. Coronal and sagit antonio reconstructions performed. FINDINGS: Lack of IV contrast limits assessment of the solid abdominal viscera, lymph nodes, and vascular struc tures. LUNG BASES: No significant abnormality is appreciated. LIVER/GB: Liver borderline in size at 17.8 cm. No focal lesion seen. Junctional fold in the gallbladd er.. PANCREAS: No significant abnormality is seen. SPLEEN: No significant abnormality is seen. ADRENALS: No significant abnormality is seen. KIDNEYS: No significant abnormality is seen. BOWEL: Solitary fluid distended small bowel loop mid upper pelvis measuring 2.4 cm. Additional low resendiz nging fluid-filled small bowel loops lower down in the pelvis. No discrete transition point. There is mild stool burden. No pericolonic inflammatory changes seen. LYMPH NODES: No significant abnormality is seen allowing for the limitations of a noncontrast study. PELVIS: No significant abnormality is seen. Bladder partially distended. Uterus anteverted. Both ova leonora are visualized. There is mild to moderate cul-de-sac free fluid. No obvious pelvic lymphadenopat hy. BONES: No significant abnormality is seen. IMPRESSION: 1. A fluid distended small bowel loop in the mid upper pelvis and additional low hanging fluid fille d small bowel loops lower down in the pelvis. Correlate for possible regional enteritis. No transitio n point to suggest obstruction. 2. Mild to moderate cul-de-sac free fluid probably physiologic.
[2022-09-13] MEDS ORDERED: ACET/COD 300 MG/30 MG STARTER PACK 6 TAB BTL PO STA (13:35)
[2022-09-13] MEDS ORDERED: ONDANSETRON 4 MG ODT STARTER PACK 2 TAB BTL PO STA (13:35)
[2022-09-13 14:05] VITALS: BP 112/77; PULSE 76; TEMP 99.4
== END 2022-09-13 14:25 | disposition home or self-care (01) ==
LOC: EC 11:06
DX: K52.9 Noninfective gastroenteritis and colitis, unspecified (principal); F17.290 Nicotine dependence, other tobacco product, uncomplicated
CPT/HCPCS: 36415; 80053; 82150; 83690; 85025; 81001; 81025; 74176; 99284; 96374; 96375; J2270; J2405; S0119

== ENCOUNTER 2023-12-22 01:40 | Emergency (ER) | payer OTHER ==
[2023-12-22 02:12] VITALS: TEMP 98.1
--- NOTE | 2023-12-22 02:12 | ED ---
ENT HPI - General Chief complaint: Dental/Oral Stated complaint: oral pain Time Seen by Provider: 12/22/23 02:12 Source: patient, RN notes reviewed Mode of arrival: ambulatory Limitations: no limitations - History of Present Illness Initial comments: 28-year-old female presented to the ER with a chief complaint of dental pain. She states she had a root canal a few weeks ago and her pain has not been improving. It is painful to lay on and eat. She has been taking [id number] ibuprofen without relief. Denies any drainage or abscesses. No fevers or chills. No other complaints at this time. - Related Data Previous Rx's Medication Instructions Recorded Amoxicillin 500 mg PO Q8H #30 capsule 12/22/23 Allergies Allergy/AdvReac Type Severity Reaction Status Date / Time No Known Allergies Allergy Verified 09/13/22 12:43 Review of Systems ROS Statement: Those systems with pertinent positive or pertinent negative responses have been documented in the HPI. ROS Other: All systems not noted in ROS Statement are negative. Past Medical History Past Medical History: Blood Disorder Additional Past Medical History / Comment(s): Sickle cell anemia. Obstetric history: She's had one previous vaginal delivery with Dr. Hernández. She's been seeing Dr. Hernández first and Dr. York for the sickle cell anemia. History of Any Multi-Drug Resistant Organisms: None Reported Past Surgical History: No Surgical Hx Reported Past Anesthesia/Blood Transfusion Reactions: No Reported Reaction Past Psychological History: No Psychological Hx Reported Smoking Status: Current every day smoker, Vaper Past Alcohol Use History: None Reported Past Drug Use History: None Reported - Past Family History Mother Family Medical History: No Reported History General Exam - General Exam Comments Initial Comments: Visual Physical Exam Vital signs reviewed General: Well-appearing, nontoxic, no acute distress. Head: Normocephalic, atraumatic Eyes: PERRLA, EOMI ENT: Airway patent Chest: Nonlabored breathing Skin: No visual rash, normal skin tone Neuro: Alert and oriented 3 Musculoskeletal: No gross abnormalities Limitations: no limitations General appearance: alert, in no apparent distress ENT exam: Present: normal oropharynx (No drainable abscess present. White plaque on teeth. Tenderness to left lower jaw) Neck exam: Present: normal inspection. Absent: tenderness, meningismus, lymphadenopathy Respiratory exam: Present: normal lung sounds bilaterally. Absent: respiratory distress, wheezes, rales, rhonchi, stridor Cardiovascular Exam: Present: regular rate, normal rhythm, normal heart sounds. Absent: systolic murmur, diastolic murmur, rubs, gallop, clicks Course Vital Signs 12/22/23 01:50 Temperature 98.1 F Pulse Rate 81 Respiratory 16 Rate Blood Pressure 124/72 O2 Sat by Pulse 100 Oximetry Medical Decision Making - Medical Decision Making I performed the quick note portion of this chart. Electronically signed by Kandi Fontaine PA-C Was pt. sent in by a medical professional or institution (, [facility], [employer], urgent care, hospital, or snf...) When possible be specific @ -No Did you speak to anyone other than the patient for history (EMS, parent, family, police, friend...)? What history was obtained from this source @ -No Did you review nursing and triage notes (agree or disagree)? Why? @ -I reviewed and agree with nursing and triage notes Were old charts reviewed (outside hosp., previous admission, EMS record, old EKG, old radiological studies, urgent care reports/EKG's, snf records)? Report findings @ -No old charts were reviewed Differential Diagnosis (chest pain, altered mental status, abdominal pain women, abdominal pain men, vaginal bleeding, weakness, fever, dyspnea, syncope, headache, dizziness, GI bleed, back pain, seizure, CVA, palpatations, mental health, musculoskeletal)? @ -Tooth ache, dental abscess, fractured tooth, pulpitis this list is not meant to be all-inclusive EKG interpreted by me (3pts min.). @ -None X-rays interpreted by me (1pt min.). @ -None done CT interpreted by me (1pt min.). @ -None done U/S interpreted by me (1pt. min.). @ -None done What testing was considered but not performed or refused? (CT, X-rays, U/S, labs)? Why? @ -None What meds were considered but not given or refused? Why? @ -None Did you discuss the management of the patient with other professionals (pro fessionals i.e. [facility] Yarbrough, [employer], lab, RT, psych nurse, social services analyst, erp analyst, teacher, targeting acquisition officer, clinical case manager)? Give summary @ -No Was smoking cessation discussed for >3mins.? @ -I discussed smoking cessation for greater than 3 minutes. The risk of smoking were discussed with the patient including but not limited to risks of cancer, stroke, coronary artery disease and COPD. Also discussed with patient were multiple methods of quitting smoking. Lastly we discussed the financial cost of smoking. Was critical care preformed (if so, how long)? @ -No Were there social determinants of health that impacted care today? How? (Homelessness, low income, unemployed, alcoholism, drug addiction, transportation, low edu. Level, literacy, decrease access to med. care, retirement, rehab)? @ -No Was there de-escalation of care discussed even if they declined (Discuss DNR or withdrawal of care, Hospice)? DNR status @ -No What co-morbidities impacted this encounter? (DM, HTN, Smoking, COPD, CAD, Cance r, CVA, ARF, Chemo, Hep., AIDS, mental health diagnosis, sleep apnea, morbid obesity)? @ -None Was patient admitted / discharged? Hospital course, mention meds given and route, prescriptions, significant lab abnormalities, going to OR and other pertinent info. @ -Discharge. 28-year-old female presented to the ER with chief complaint of dental pain. History and physical exam completed. Vital stable. Patient no signs of acute distress and nontoxic-appearing. No drainable abscess present on exam. Results discussed with patient, all questions answered. I advised follow-up with dentist. Amoxicillin prescribed. Patient given starter pack of Tylenol 3's and advised to only take for extreme pain along with ibuprofen. Return parameters discussed. Patient discharged in stable condition with follow-up to a dentist, referral given. Patient verbally expressed understanding and agreement with care plan. Case discussed with ED attending, Dr. Key. Undiagnosed new problem with uncertain prognosis? @ -No Drug Therapy requiring intensive monitoring for toxicity (Heparin, Nitro, Insulin, Cardizem)? @ -No Were any procedures done? @ -No Diagnosis/symptom? @ -Dental pain Acute, or Chronic, or Acute on Chronic? @ -Acute Uncomplicated (without systemic symptoms) or Complicated (systemic symptoms)? @ -Uncomplicated Side effects of treatment? @ -No Exacerbation, Progression, or Severe Exacerbation? @ -No Poses a threat to life or bodily function? How? (Chest pain, [place], [place], pneumonia, PE, COPD, DKA, ARF, appy, cholecystitis, CVA, Diverticulitis, Homicidal, Suicidal, threat to staff... and all critical care pts) @ -No Disposition Clinical Impression: Pain, dental Disposition: HOME SELF-CARE Condition: Stable Instructions (If sedation given, give patient instructions): Toothache (ED) Additional Instructions: Please follow-up with dentist. Take [id number] Tylenol and Motrin for pain. You may take Tylenol threes for extreme pain. Return to the ER for any new or worsening concerns. Complete full course of antibiotics. Prescriptions: Amoxicillin 500 mg PO Q8H #30 capsule Is patient prescribed a controlled substance at d/c from ED?: No Referrals: Jose Luis Echevarria DO [Primary Care Provider] - 1-2 days Jhonny Brooks DDS [STAFF PHYSICIAN] - 1-2 days Lizzeth Godoy DDS [STAFF PHYSICIAN] - 1-2 days Time of Disposition: 03:27
[2023-12-22] MEDS: ACET/COD 300 MG/30 MG STARTER PACK 6 TAB BTL PO STA (03:45)
[2023-12-22 04:59] VITALS: BP 108/75; PULSE 79; RESP 18
== END 2023-12-22 03:46 | disposition home or self-care (01) ==
LOC: EC 01:40
DX: K08.89 Other specified disorders of teeth and supporting structures (principal); F17.290 Nicotine dependence, other tobacco product, uncomplicated
CPT/HCPCS: 99282; 99406